=== PATIENT | male | born 1970 | race Caucasian/White ===

== ENCOUNTER → 2017-09-10 08:17 | Outpatient (CLI) | payer BC, SELFPAY ==
--- NOTE | 2017-09-10 08:21 | PCM.CR.HP2 ---
CR - History & Physical - General Arrival date:: 09/10/17 Arrival time:: 08:21 Date of Referral:: 08/20/17 Date of CR Evaluation:: 09/10/17 Referring Physician: Dr. Juan A Ceballos/ Dr. Seferino Gastelum local ms sql developer Primary Diagnosis: CABG x 2 vessel bypass 07/16/2017 @ [facility] - History of Present Cardiac Event Onset Date: Enter Onset Date of cardiac illnesses in Comment field below Acute Myocardial Infarction within 12 months:: Yes - Mar 2017 Coronary Artery Bypass Graft:: Yes - 07/16/2017 Type of Symptoms:: tightness in the chest, jaw pain, impeeding alin feeling again. Previous SC in 2003 classic text book symptoms Interventions with present event:: sent ot [facility] to Dr. Ceballos for consult and CABG. Were there any complications?: none - Medications Home Medications: Ambulatory Orders Medication Instructions Recorded Aspirin E.C. [Ecotrin] 81 mg PO DAILY@0800 04/13/13 Citalopram [Celexa] 20 mg PO DAILY 04/01/17 atorvastatin 80 mg tablet 80 mg PO QHS #90 tab 05/06/17 Acetaminophen [Tylenol] 325 mg PO Q6H PRN PRN 09/10/17 Clopidogrel Bisulfate [Plavix] 75 mg PO DAILY 09/10/17 Metoprolol Tartrate [Lopressor 25 mg PO BID 09/10/17 (beta radha)] - Allergies Allergies/Adverse Reactions: Allergies Penicillins [PCN] Allergy (Verified 04/01/17 20:27) Unknown - Sleep Disorder Evaluation Hx of Sleep Apnea: Yes Do you snore loudly (louder than talking or can be heard through closed doors)?: Yes - has JUAN M and wears home CPAP History of Hypertension (for STOP score): Yes Advanced Directives - Advanced Directives Power of House Coordinator: No Living Will: No Advance Directives Information Provided: No Advance Directives on File: No DNR Order?:: No - MOLST See MOLST form: No Past Medical History - Past Medical Illness Medical History: Past Medical History (Last Updated 04/18/17 @ 08:55 by Mikal Lester, CAD OPERATOR-C) Atherosclerosis of [place] coronary artery of [place] heart without angina pectoris (Chronic) I25.10 remote stenting to RCA at [facility] in [place], [place]; PTCA/FLEX to distal LCX 03/2017; Hypertension (Chronic) I10 History of myocardial infarction (Chronic) I25.2 Tobacco user (Chronic) Z72.0 Cardiac arrest I46.9 - Past Surgical History Surgical History: Past Surgical History (Last Updated 04/18/17 @ 08:54 by Mikal Lester CAD OPERATOR-C) History of left heart catheterization Z98.890 Surgical History: appendectomy, tonsillectomy, - - Cardiac stent placed - Family History Summary Family History: Family History (Last Updated 04/18/17 @ 10:07 by Susie Kasper) Mother Diabetes Hypertension HLD (hyperlipidemia) Social History - Smoking History Smoking Status: Former smoker Years Smokin Packs Smoked per Day: 2 Hx Smoking Cessation Date: 2013 Hx Tobacco Use: Yes Hx Smoking Exposure: No - Alcohol Use Alcohol Usage: Yes - ocassionally - Substance Abuse Hx Substance Use: No - Occupation Occupation (List type of work in comments):: Employed Hours worked per day:: 8 Returned to work on:: 08/22/17 - Hobbies, Recreation, Social Activities Hobbies: Other - gaolf, cortes, fish and sports Recreational Activities: I am able to engage in all my recreational activities Social Environment - Status Marital Status: - Current Living Arrangements Living Environment:: Family - Children How many children do you have?: 3 - 14, 10, 11 Do any of your children live nearby?: Yes - Safety Do you feel safe in your surroundings?: Yes - Assistance Do you need any assistance at home?: none Review of Systems - Review of Systems Hints: Right click = Denies (Slash). Left click = Reports ([place]) Review of Present Symptoms: Reports: Wound Healing, Appetite - Normal, Appetite - Special Diet - healthy diet, cardiac low sodium, no fats, etc. Mediterranian Diet now.. Denies: Shortness of Breath at Rest, Shortness of Breath with Exertion, Operative Discomfort, Dizziness/Lightheadedness, Fatigue - Pain Pain Location: none Pain Level: 0/10 Risk Factor Assessment - Chief Complaint Chief Complaint: Patient presentst o cardiac rehab under the direction of Dr. Juan A Ceballos at [facility] follwoing recent CABG. Patient will be following up [facility] care now with his local ms sql developer Dr. Seferino Gastelum. - Vital Signs Temperature: 98.7 F Respiratory Rate: 14 Pulse Ox: 96 Blood Pressure: 118/66 - left arm Nailbeds:: pink - Pulse Pulse Rate: 64 Pulse Rhythm: Regular - Hypertension Blood Pressure Sitting - Left Arm: 118/66 - Stress Stress: Recent - Diabetes Nutrition Referral for Diabetes: No - Obesity Height: 5 ft 10 in Weight:: 199 lb 12.8 oz Weight in Pounds: 199.8 lbs Weight Source: Standing Scale Body Mass Index (BMI): 28.6 Nutritional Referral for Obesity: No - following Mediteranian diet, cardiac diet - Physical Inactivity Physical Inactivity: Reg Exercise 30 min/day - Risk Stratification Risk Guidelines: Lowest Risk: Risk Factor for Smoking, Risk Factor for Dyslipidemia, Risk Factor for Diabetes, Risk Factor for Hypertension, Risk Factor for Sedentary Lifestyle, Risk Factor for Depression, Moderate Risk: Risk Factor for Obesity - For Smoking Smoking Risk Guidelines: Smoking Low Risk: None or quit greater than 6 months ago. Smoking Moderate Risk: Smoker or quit 6 months or less ago. Smoking High Risk: Smoker - For Dyslipidemia Dyslipidemia Risk Guidelines: Low Risk: Moderate Risk: High Risk: 15-25% fat 25.1-29% fat >/= 30% fat. <7% sat fat 7-9% sat fat >9% sat fat. <150 mg chol 150-299 mg chol >/= 300 mg chol. LDL <100 LDL 100-129 LDL >/= 130. Chol/HDL ratio <5.0 Chol/HDL ratio 5.0-6.0 Chol/HDL ratio >6.0. Triglycerides <100 Triglycerides 100-149 Triglycerides >/= 150 - For Diabetes Mellitus Diabetes Risk Guidelines: Diabetes Low Risk: HgA1c <6.5% and/or FBG <120. Diabetes Moderate Risk: HgA1c 6.6-7.9% and/or FBG 120-180. Diabetes High Risk: HgA1c >/= 8% and/or FBG >180 - For Obesity/Overweight Obesity/Overweight Risk Guidelines: Obesity Low Risk: BMI <25.0. Obesity Moderate Risk: BMI 25-29.9. Obesity High Risk: BMI >/= 30.0 - For Hypertension Hypertension Risk Guidelines: Hypertension Low Risk: Systolic <120 and Diastolic <80. Hypertension Moderate Risk: Systolic 120-139 and Diastolic 80-89. Hypertension High Risk: Systolic >/= 140 and Diastolic >/= 90 - For Sedentary Lifestyle Sedentary Lifestyle Risk Guidelines: Sedentary Lifestyle Low Risk: >/= 1,500 kcal/week. Sedentary Lifestyle Moderate Risk: 700-1,499 kcal/week. Sedentary Lifestyle High Risk: < 700 kcal/week - For Depression Depression Risk Guidelines: Depression Low Risk: Not clinically depressed. Depression Moderate Risk: Mildly depressed. Depression High Risk: Clinically depressed - Family History Family History: Family History (Last Updated 04/18/17 @ 10:07 by Susie Kasper) Mother Diabetes Hypertension HLD (hyperlipidemia) Motivation - Motivation to Participate On a scale of 1 to 10, how prepared are you to commit to attending program?: 15 What do you see as barriers to successfully being able to complete the program?: none What do you see as the benefits of succesfully completing the program? In other words, what do you hope to get out of participating in the program?: getting back on track with previous activity exercise. Are there issues you are dealing with that will interfere with completing the program?: none Do you have a spouse or signficant other, family or friends who will help support you to complete the program?: excellent family support system
--- NOTE | 2017-09-10 08:32 | CR.HP_ITS ---
CR - History & Physical - General Arrival date:: 09/10/17 Arrival time:: 08:21 Date of Referral:: 08/20/17 Date of CR Evaluation:: 09/10/17 Referring Physician: Dr. Juan A Ceballos/ Dr. Seferino Gastelum local travel insurance agent Primary Diagnosis: CABG x 2 vessel bypass 07/16/2017 @ [facility] - History of Present Cardiac Event Onset Date: Enter Onset Date of cardiac illnesses in Comment field below Acute Myocardial Infarction within 12 months:: Yes - Mar 2017 Coronary Artery Bypass Graft:: Yes - 07/16/2017 Type of Symptoms:: tightness in the chest, jaw pain, impeeding alin feeling again. Previous [place] in 2003 classic text book symptoms Interventions with present event:: sent ot [facility] to Dr. Ceballos for consult and CABG. Were there any complications?: none - Medications Home Medications: Ambulatory Orders Medication Instructions Recorded Aspirin E.C. [Ecotrin] 81 mg PO DAILY@0800 04/13/13 Citalopram [Celexa] 20 mg PO DAILY 04/01/17 atorvastatin 80 mg tablet 80 mg PO QHS #90 tab 05/06/17 Acetaminophen [Tylenol] 325 mg PO Q6H PRN PRN 09/10/17 Clopidogrel Bisulfate [Plavix] 75 mg PO DAILY 09/10/17 Metoprolol Tartrate [Lopressor 25 mg PO BID 09/10/17 (beta radha)] - Allergies Allergies/Adverse Reactions: Allergies Penicillins [PCN] Allergy (Verified 04/01/17 20:27) Unknown - Sleep Disorder Evaluation Hx of Sleep Apnea: Yes Do you snore loudly (louder than talking or can be heard through closed doors)? : Yes - has JUAN M and wears home CPAP History of Hypertension (for STOP score): Yes Advanced Directives - Advanced Directives Power of Mold Maker Apprentice: No Living Will: No Advance Directives Information Provided: No Advance Directives on File: No DNR Order?:: No - MOLST See MOLST form: No Past Medical History - Past Medical Illness Medical History: Past Medical History (Last Updated 04/18/17 @ 08:55 by Mikal Lester, RESIDENTIAL CARE OFFICER-C) Atherosclerosis of [place] coronary artery of [place] heart without angina pectoris (Chronic) I25.10 remote stenting to RCA at [facility] in [place], [place]; PTCA/FLEX to distal LCX 03/2017; Hypertension (Chronic) I10 History of myocardial infarction (Chronic) I25.2 Tobacco user (Chronic) Z72.0 Cardiac arrest I46.9 - Past Surgical History Surgical History: Past Surgical History (Last Updated 04/18/17 @ 08:54 by Mikal Lester RESIDENTIAL CARE OFFICER-C) History of left heart catheterization Z98.890 Surgical History: appendectomy, tonsillectomy, - - Cardiac stent placed - Family History Summary Family History: Family History (Last Updated 04/18/17 @ 10:07 by Susie Kasper) Mother Diabetes Hypertension HLD (hyperlipidemia) Social History - Smoking History Smoking Status: Former smoker Years Smokin Packs Smoked per Day: 2 Hx Smoking Cessation Date: 2013 Hx Tobacco Use: Yes Hx Smoking Exposure: No - Alcohol Use Alcohol Usage: Yes - ocassionally - Substance Abuse Hx Substance Use: No - Occupation Occupation (List type of work in comments):: Employed Hours worked per day:: 8 Returned to work on:: 08/22/17 - Hobbies, Recreation, Social Activities Hobbies: Other - gaolf, cortes, fish and sports Recreational Activities: I am able to engage in all my recreational activities Social Environment - Status Marital Status: - Current Living Arrangements Living Environment:: Family - Children How many children do you have?: 3 - 14, 10, 11 Do any of your children live nearby?: Yes - Safety Do you feel safe in your surroundings?: Yes - Assistance Do you need any assistance at home?: none Review of Systems - Review of Systems Hints: Right click = Denies (Slash). Left click = Reports ([place]) Review of Present Symptoms: Reports: Wound Healing, Appetite - Normal, Appetite - Special Diet - healthy diet, cardiac low sodium, no fats, etc. Mediterranian Diet now.. Denies: Shortness of Breath at Rest, Shortness of Breath with Exertion, Operative Discomfort, Dizziness/Lightheadedness, Fatigue - Pain Pain Location: none Pain Level: 0/10 Risk Factor Assessment - Chief Complaint Chief Complaint: Patient presentst o cardiac rehab under the direction of Dr. Juan A Ceballos at [facility] follwoing recent CABG. Patient will be following up [facility] care now with his local travel insurance agent Dr. Seferino Gastelum. - Vital Signs Temperature: 98.7 F Respiratory Rate: 14 Pulse Ox: 96 Blood Pressure: 118/66 - left arm Nailbeds:: pink - Pulse Pulse Rate: 64 Pulse Rhythm: Regular - Hypertension Blood Pressure Sitting - Left Arm: 118/66 - Stress Stress: Recent - Diabetes Nutrition Referral for Diabetes: No - Obesity Height: 5 ft 10 in Weight:: 199 lb 12.8 oz Weight in Pounds: 199.8 lbs Weight Source: Standing Scale Body Mass Index (BMI): 28.6 Nutritional Referral for Obesity: No - following [place]iter[place] diet, cardiac diet - Physical Inactivity Physical Inactivity: Reg Exercise 30 min/day - Risk Stratification Risk Guidelines: Lowest Risk: Risk Factor for Smoking, Risk Factor for Dyslipidemia, Risk Factor for Diabetes, Risk Factor for Hypertension, Risk Factor for Sedentary Lifestyle, Risk Factor for Depression, Moderate Risk: Risk Factor for Obesity - For Smoking Smoking Risk Guidelines: Smoking Low Risk: None or quit greater than 6 months ago. Smoking Moderate Risk: Smoker or quit 6 months or less ago. Smoking High Risk: Smoker - For Dyslipidemia Dyslipidemia Risk Guidelines: Low Risk: Moderate Risk: High Risk: 15-25% fat 25.1-29% fat >/= 30% fat. <7% sat fat 7-9% sat fat >9% sat fat. <150 mg chol 150-299 mg chol >/= 300 mg chol. LDL <100 LDL 100-129 LDL >/= 130. Chol/HDL ratio <5.0 Chol/HDL ratio 5.0-6.0 Chol/HDL ratio >6.0. Triglycerides <100 Triglycerides 100-149 Triglycerides >/= 150 - For Diabetes Mellitus Diabetes Risk Guidelines: Diabetes Low Risk: HgA1c <6.5% and/or FBG <120. Diabetes Moderate Risk: HgA1c 6.6-7.9% and/or FBG 120-180. Diabetes High Risk: HgA1c >/= 8% and/or FBG >180 - For Obesity/Overweight Obesity/Overweight Risk Guidelines: Obesity Low Risk: BMI <25.0. Obesity Moderate Risk: BMI 25-29.9. Obesity High Risk: BMI >/= 30.0 - For Hypertension Hypertension Risk Guidelines: Hypertension Low Risk: Systolic <120 and Diastolic <80. Hypertension Moderate Risk: Systolic 120-139 and Diastolic 80-89. Hypertension High Risk: Systolic >/= 140 and Diastolic >/= 90 - For Sedentary Lifestyle Sedentary Lifestyle Risk Guidelines: Sedentary Lifestyle Low Risk: >/= 1 ,500 kcal/week. Sedentary Lifestyle Moderate Risk: 700-1,499 kcal/week. Sedentary Lifestyle High Risk: < 700 kcal/week - For Depression Depression Risk Guidelines: Depression Low Risk: Not clinically depressed. Depression Moderate Risk: Mildly depressed. Depression High Risk: Clinically depressed - Family History Family History: Family History (Last Updated 04/18/17 @ 10:07 by Susie Kasper) Mother Diabetes Hypertension HLD (hyperlipidemia) Motivation - Motivation to Participate On a scale of 1 to 10, how prepared are you to commit to attending program?: 15 What do you see as barriers to successfully being able to complete the program? : none What do you see as the benefits of succesfully completing the program? In other words, what do you hope to get out of participating in the program?: getting back on track with previous activity exercise. Are there issues you are dealing with that will interfere with completing the program?: none Do you have a spouse or signficant other, family or friends who will help support you to complete the program?: excellent family support system
--- NOTE | 2017-09-10 08:36 | CR.ITP_ITS ---
General Information - General Information Admitting Diagnosis: Coronary artery bypass graft - Education/Goals Barriers to Learning: None Individual Counseling: Initial Assessment: Abnormal Cholesterol Levels, High Blood Pressure, Overweight/Obesity Cardiac Rehabilitation Goals: 1. Maintain the individual as the primary focus of care. 2. To improve the patient's quality of life. 3. Identification of cardiac risk factors and provide cardiac risk factor management. 4. Enhance the psychosocial status of the patient. 5. Reconditioning enough to allow the patient to resume customary activities. 6. Control symptoms of cardiac disease Scale for measuring improvement of personal goals: Enter appropriate number in Comments. 2 = Unchanged. 3 = Slightly Better. 4 = Moderate Improvement. 5 = Met my Goal Personal Goals: Initial Assessment: Improve management of stress and emotions, Improve energy level, Participate in home exercise program, Improve muscle strength and endurance, Improve diet and eating habits (eat healthier), Other goal: - CPAP Exercise - Initial Assessment - Visit Date of Eval: 09/10/17 Session #:: 0 - established ITP; start on 09/11/2017 @ 8:00am. - Stages of Change Stages of Change:: Action - Exercise Prescription Mode:: Treadmill, Rower - CABG 07/16/2017; 8 weeks post operative can do the rower., Airdyne, NuStep Angina with exercise?: No Target Heart Rate:: 132-140 - Hypertension Do any of the following apply?: Yes, Medication Resting Blood Pressure:: 122/68 - Intervention Home Exercise/Activity Goal:: Moderate Exercise 30 min/day x 5 days/wk - Education Goals:: Warm-up, RPE CHINO Scale, S/S, Safe Exercise, Self-Monitoring - Exercise Program Goals Exercise Program Goals: Aerobic Activity >30 min Nutrition - Initial Assessment - Program Goals Nutrition Program Goals: LDL <70. Total Cholesterol <200. HDL >45. Triglycerides <150. HgbA1C <7%. BMI <25 - Visit Date of Assessment:: 09/10/17 - Stages of Change Stages of Change:: Action - Diabetes Diabetes:: No - Weight Management Height: 5 ft 10 in Weight:: 199 lb 12.8 oz Body Fat %:: 28.91 - down from original 243#!! - Intervention Referral to dietitian:: No Referral to Diabetic Clinic:: No Will attend diet classes:: Yes - Education Gave educational materials for:: Healthy eating Tobacco - Initial Assessment - Program Goals Tobacco Program Goals: Complete smoking cessation. Attend education classes. Improve Knowledge Test score - Stage of Change Stages of Change:: Action - Learning Barriers Learning Barriers: Ready to Learn - Family Support Do you have family support?: Yes - excellent family support - Tobacco Use Tobacco Use: Non-smoker How long ago did you quit using tobacco products?: Greater than or equal to 6 months ago How many cigarettes do you smoke per day?: 0 - previous 15-20 per day Do you use smokeless tobacco?: No - Intervention Smoking Cessation Referral:: No Individual Education/Counseling:: No Education Schedule Given:: Yes - Education Gave educational material for:: Coronary artery disease, Risk factors, Sexuality , Medical compliance, Cardiac A&P, Angina signs & symptoms Psychosocial - Initial Assess - Target Goals Target Goals: Assess presence or absence of depression. Using a valid screening tool, maximizes coping skills. Positive support system - Stages of Change Stages of Change:: Action - Psychosocial Test Tool Used:: HANDS Depression Questionnaire - Intervention PS - Interventions: Yes Attend Stress Management Classes, Yes Uses Stress Management Skills, No Referral to Mental Health, No Referral to [facility] Case Management, No Referral to Physician - Education Gave educational materials for:: Coping techniques, Signs & symptoms of depression, Stress management, Relaxation techniques - Patient/Program Goal Preventative Medication(s):: Aspirin, Clopidogrel, Statin/lipid - Assistive Devices Assistive Devices:: None Fall Risk Assessed:: Yes Patient Health Questionnaire Initial Assessment 1. Little interest or pleasure in doing things: Not at all 2. Feeling down, depressed, or hopeless: Several days 3. Trouble falling or staying asleep, or sleeping too much: Not at all 4. Feeling tired or having little energy: Not at all 5. Poor appetite or overeating: Not at all 6. Feeling bad about yourself -- or that you are a failure or have let yourself or your family down: Not at all - more of feeling helpless; since still limited on activity and weight restrictions etc. 7. Trouble concentrating on things, such as reading the newspaper or watching television: Not at all 8. Moving or speaking so slowly that other people could have noticed. Or the opposite - being so fidgety or restless that you have been moving around a lot more than usual: Not at all 9. Thoughts that you would be better off , or of hurting yourself in some way: Not at all How difficult have these problems made it for you to do your work, take care of things at home, or get along with other people?: Not difficult at all Total Score: 1 NATALI-Q SV Test - Statements CAD is a disease of the arteries in the heart: False Examples of risk factors for heart disease: True Angina is chest pain or discomfort: True The benefits of resistance training include: True Eating more meat and dairy products: False Anti-platelet medications such as aspirin are important: True The only effective way to manage stress: False An exercise warm-up slowly increases heart rate: True Prepared, processed foods usually have high sodium: True Depression is common after a heart attack: True The statin medications lower cholesterol: True To control blood pressure, lower the amount of sodium: True If someone gets chest discomfort during walking: False Transfats are partially hydrogenated vegetable oils: True Sleep apnea that is not treated increases the risk: False To control cholesterol, one should become a vegetarian: False Someone knows if he/she is exercising at the right level: True Diabetes cannot be prevented with exercise & health eating: False Stress is a large risk for heart attack: True A diet that can help lower blood pressure is rich in: True - Total Score Total Correct Responses: 20 Self-Efficacy Initial Assessment We would like to know how confident you are in doing certain activities. Please select your confidence level for:: Select your confidence level for the following using the scale 1-10 where 1 is not at all confident and 10 is totally confident. Your score is the average of all 6 responses. Fatigue: How confident are you that you can keep the fatigue caused by your disease from interfering with the things you want to do? Select Number: 10 Physical Discomfort or Pain: How confident are you that you can keep the physical discomfort or pain of your disease from interfering with the things you want to do? Select Number: 10 Emotional Distress: How confident are you that you can keep the emotional distress caused by your disease from interfering with the things you want to do? Select Number: 10 Other Symptoms or Health Problems: How confident are you that you can keep other symptoms or health problems from interfering with the things you want to do? Select Number: 10 Different Tasks and Activities: How confident are you that you can do the different tasks and activities needed to manage your health condition so as to reduce your need to see a doctor? Select Number: 10 Medication: How confident are you that you can do things other than just taking medication to reduce how much your illness affects your everyday life? Select Number: 10 Total Score:: 10 Nutrition Survey - Nutrition Survey Instructions Scoring Instructions: Scoring is as follows: Yes = 1 points. No = 0 point. Patient score that is >/=12 is considered to be at potential nutritional risk and could benefit from a referral to a registered dietitian. - Nutrition Survey Initial Have you lost >10 lbs over the past 2 months without trying?: No Are you following a special diet at home for diabetes, low fat, or low salt?: Yes Are you interested in meeting with a dietitian for help understanding your diet? : Yes Do you eat less than 3 meals a day?: No Do you eat fatty meats (woods, sausage, ribs, etc), fried foods, desserts, large amounts of salad dressings, margarine, butter, or cheese most days?: No Do you have food allergies? [Enter types in comment field]: No Do you eat in restaurants more than 3 times a week?: No Do you season food with salt, seasoning salt, or garlic salt?: No Do you used canned, boxed, frozen meals, or soups, seasoning packets?: No Total Score:: 2
[2017-09-10 08:38] VITALS: BP 118/66; PULSE 64; RESP 14; TEMP 37.1; O2SAT 96; BMI 28.6
[2017-09-10 09:15] VITALS: BP 122/68
== END ==
PROVIDERS: Family Provider Family Medicine; PCP Family Medicine; Visit Provider Thoracic Surgery (Cardiothoracic Vascular Surgery)
DX: Z95.1 Presence of aortocoronary bypass graft (principal)

== ENCOUNTER 2017-09-11 07:45 | Outpatient (RCR) | payer BC, SELFPAY | END 2017-09-12 23:59 | LOC: CR 07:45 | PROVIDERS: Family Provider Family Medicine; PCP Family Medicine; Visit Provider Thoracic Surgery (Cardiothoracic Vascular Surgery) | DX: Z95.1 Presence of aortocoronary bypass graft (principal) | CPT/HCPCS: 93798 ==

== ENCOUNTER 2017-10-09 08:00 | Outpatient (RCR) | payer BC, SELFPAY ==
[2017-10-04 14:48] VITALS: BP 124/80
--- NOTE | 2017-10-04 14:49 | CR.ITP_ITS ---
Exercise - 30-day Assessment - Visit Date of Eval: 10/04/17 Session #:: 6 - Stages of Change Stages of Change:: Action - Exercise Prescription Mode:: Treadmill, Rower, Airdyne, NuStep Frequency (x/week): 3 Duration:: 30 METs - Progression: 0.5-1 MET as tolerated: 5 Target Heart Rate:: 132-140 - Hypertension Resting Blood Pressure:: 124/80 Peak Exercise Blood Pressure:: 124/80 Medication Changes:: No - Intervention Home Exercise/Activity Goal:: Moderate Exercise 30 min/day x 5 days/wk - Education Goals:: Warm-up, RPE CHINO Scale, S/S, Safe Exercise, Self-Monitoring - Exercise Program Goals Exercise Program Goals: Aerobic Activity >30 min Nutrition - 30-Day Assessment - Program Goals Nutrition Program Goals: LDL <70. Total Cholesterol <200. HDL >45. Triglycerides <150. HgbA1C <7%. BMI <25 - Visit Date of Eval: 10/04/17 - Stages of Change Stages of Change:: Action - Lipids Has the patient seen the dietitian?: No - Diabetes Diabetes:: No - Intervention Referral to dietitian:: No Will attend diet classes:: Yes - Education Attended class for:: Healthy eating Tobacco - Initial Assessment - Program Goals Tobacco Program Goals: Complete smoking cessation. Attend education classes. Improve Knowledge Test score - Learning Barriers Learning Barriers: Ready to Learn Tobacco - 30-Day Assessment - Program Goals Tobacco Program Goals: Complete smoking cessation. Attend education classes. Improve Knowledge Test score - Stage of Change Stages of Change:: Action - Learning Barriers Learning Barriers: Participates in education - Family Support Do you have family support?: Yes - Tobacco Use Tobacco Use: Non-smoker Do you use smokeless tobacco?: No - Education Attended class for:: Coronary artery disease, Risk factors, Sexuality, Medical compliance, Cardiac A&P, Angina signs & symptoms Psychosocial - Initial Assess - Target Goals Target Goals: Assess presence or absence of depression. Using a valid screening tool, maximizes coping skills. Positive support system - Psychosocial Test Tool Used:: HANDS Depression Questionnaire - Assistive Devices Fall Risk Assessed:: Yes Psychosocial - 30-Day Assess - Target Goals Target Goals: Assess presence or absence of depression. Using a valid screening tool, maximizes coping skills. Positive support system - Stages of Change Stages of Change:: Action - Psychosocial Test Tool Used:: HANDS Depression Questionnaire - Intervention PS - Interventions: Yes Attend Stress Management Classes, Yes Uses Stress Management Skills, No Referral to Mental Health, No Referral to [facility] Case Management, No Referral to Physician - Education Attended classes for:: Coping techniques, Signs & symptoms of depression, Stress management, Relaxation techniques - Patient/Program Goal Preventative Medication(s):: Aspirin, NAE inhibitor, Clopidogrel, Beta radha, Statin/lipid - Assistive Devices Assistive Devices:: None Fall Risk Assessed:: Yes Patient Health Questionnaire 30-Day Re-eval Assessment 1. Little interest or pleasure in doing things: Not at all 2. Feeling down, depressed, or hopeless: Not at all 3. Trouble falling or staying asleep, or sleeping too much: Not at all 4. Feeling tired or having little energy: Not at all 5. Poor appetite or overeating: Not at all 6. Feeling bad about yourself -- or that you are a failure or have let yourself or your family down: Not at all 7. Trouble concentrating on things, such as reading the newspaper or watching television: Not at all 8. Moving or speaking so slowly that other people could have noticed. Or the opposite - being so fidgety or restless that you have been moving around a lot more than usual: Not at all 9. Thoughts that you would be better off , or of hurting yourself in some way: Not at all Total Score: 0 Self-Efficacy 30-Day Re-eval Assessment We would like to know how confident you are in doing certain activities. Please select your confidence level for:: Select your confidence level for the following using the scale 1-10 where 1 is not at all confident and 10 is totally confident. Your score is the average of all 6 responses. Fatigue: How confident are you that you can keep the fatigue caused by your disease from interfering with the things you want to do? Select Number: 10 Physical Discomfort or Pain: How confident are you that you can keep the physical discomfort or pain of your disease from interfering with the things you want to do? Select Number: 10 Emotional Distress: How confident are you that you can keep the emotional distress caused by your disease from interfering with the things you want to do? Select Number: 10 Other Symptoms or Health Problems: How confident are you that you can keep other symptoms or health problems from interfering with the things you want to do? Select Number: 10 Different Tasks and Activities: How confident are you that you can do the different tasks and activities needed to manage your health condition so as to reduce your need to see a doctor? Select Number: 10 Medication: How confident are you that you can do things other than just taking medication to reduce how much your illness affects your everyday life? Select Number: 10 Total Score:: 10
== END 2017-10-12 23:59 ==
LOC: CR 08:00
PROVIDERS: Family Provider Family Medicine; PCP Family Medicine; Visit Provider Thoracic Surgery (Cardiothoracic Vascular Surgery)
DX: Z95.1 Presence of aortocoronary bypass graft (principal)
CPT/HCPCS: 93798

== ENCOUNTER 2017-11-11 08:00 | Outpatient (RCR) | payer BC, SELFPAY ==
[2017-10-13 01:05] VITALS: BP 124/80
[2017-11-06 11:33] VITALS: BP 154/70
--- NOTE | 2017-11-06 11:34 | CR.ITP_ITS ---
Exercise - 60-Day Assessment - Visit Date of Eval: 11/06/17 Session #:: 15 - Stages of Change Stages of Change:: Action - Exercise Prescription Mode:: Treadmill, Rower, Airdyne Frequency (x/week): 3 Duration:: 30 METs: 8 Target Heart Rate:: 138-146 - Hypertension Resting Blood Pressure:: 154/70 Peak Exercise Blood Pressure:: 154/70 Medication Changes:: No - Intervention Home Exercise/Activity Goal:: Moderate Exercise 30 min/day x 5 days/wk - Education Goals:: Warm-up, RPE CHINO Scale, S/S, Safe Exercise, Self-Monitoring - Exercise Program Goals Exercise Program Goals: Aerobic Activity >30 min Nutrition - 60-Day Assessment - Program Goals Nutrition Program Goals: LDL <70. Total Cholesterol <200. HDL >45. Triglycerides <150. HgbA1C <7%. BMI <25 - Visit Date of Eval: 11/06/17 - Stages of Change Stages of Change:: Action - Lipids Has the patient seen the dietitian?: No - Diabetes Diabetes:: No - Weight Management Weight:: 206 lb 8 oz - gained 2.5# - Intervention Referral to dietitian:: No Referral to Diabetic Clinic:: No Will attend diet classes:: Yes - Education Attended class for:: Healthy eating Tobacco - Initial Assessment - Program Goals Tobacco Program Goals: Complete smoking cessation. Attend education classes. Improve Knowledge Test score - Learning Barriers Learning Barriers: Ready to Learn Tobacco - 60-Day Assessment - Program Goals Tobacco Program Goals: Complete smoking cessation. Attend education classes. Improve Knowledge Test score - Stage of Change Stages of Change:: Action - Learning Barriers Learning Barriers: Participates in education - Family Support Do you have family support?: Yes - Tobacco Use Tobacco Use: Non-smoker Do you use smokeless tobacco?: No - Intervention Smoking Cessation Referral:: No Individual Education/Counseling:: No Education Schedule Given:: Yes - Education Attended class for:: Coronary artery disease, Risk factors, Sexuality, Medical compliance, Cardiac A&P, Angina signs & symptoms Psychosocial - 60-Day Assess - Target Goals Target Goals: Assess presence or absence of depression. Using a valid screening tool, maximizes coping skills. Positive support system - Stages of Change Stages of Change:: Action - Psychosocial Test Tool Used:: HANDS Depression Questionnaire - Intervention PS - Interventions: Yes Attend Stress Management Classes, Yes Uses Stress Management Skills, No Referral to Mental Health, No Referral to [facility] Case Management, No Referral to Physician - Education Attended classes for:: Coping techniques, Signs & symptoms of depression, Stress management, Relaxation techniques - Patient/Program Goal Preventative Medication(s):: Aspirin, Clopidogrel, Beta radha, Statin/lipid - Assistive Devices Assistive Devices:: None Fall Risk Assessed:: Yes Patient Health Questionnaire 60-Day Re-eval Assessment 1. Little interest or pleasure in doing things: Not at all 2. Feeling down, depressed, or hopeless: Not at all 3. Trouble falling or staying asleep, or sleeping too much: Not at all 4. Feeling tired or having little energy: Not at all 5. Poor appetite or overeating: Not at all 6. Feeling bad about yourself -- or that you are a failure or have let yourself or your family down: Not at all 7. Trouble concentrating on things, such as reading the newspaper or watching television: Not at all 8. Moving or speaking so slowly that other people could have noticed. Or the opposite - being so fidgety or restless that you have been moving around a lot more than usual: Not at all 9. Thoughts that you would be better off , or of hurting yourself in some way: Not at all How difficult have these problems made it for you to do your work, take care of things at home, or get along with other people?: Not difficult at all Total Score: 0 Self-Efficacy 60-Day Re-eval Assessment We would like to know how confident you are in doing certain activities. Please select your confidence level for:: Select your confidence level for the following using the scale 1-10 where 1 is not at all confident and 10 is totally confident. Your score is the average of all 6 responses. Fatigue: How confident are you that you can keep the fatigue caused by your disease from interfering with the things you want to do? Select Number: 10 Physical Discomfort or Pain: How confident are you that you can keep the physical discomfort or pain of your disease from interfering with the things you want to do? Select Number: 10 Emotional Distress: How confident are you that you can keep the emotional distress caused by your disease from interfering with the things you want to do? Select Number: 10 Other Symptoms or Health Problems: How confident are you that you can keep other symptoms or health problems from interfering with the things you want to do? Select Number: 10 Different Tasks and Activities: How confident are you that you can do the different tasks and activities needed to manage your health condition so as to reduce your need to see a doctor? Select Number: 10 Medication: How confident are you that you can do things other than just taking medication to reduce how much your illness affects your everyday life? Select Number: 10 Total Score:: 10
== END 2017-11-12 23:59 ==
LOC: CR 08:00
PROVIDERS: Family Provider Family Medicine; PCP Family Medicine; Visit Provider Thoracic Surgery (Cardiothoracic Vascular Surgery)
DX: Z95.1 Presence of aortocoronary bypass graft (principal)
CPT/HCPCS: 93798

== ENCOUNTER 2017-12-13 08:00 | Outpatient (RCR) | payer BC, SELFPAY ==
[2017-11-13 01:02] VITALS: BP 154/70
--- NOTE | 2017-12-06 14:41 | CR.ITP_ITS ---
General Information - General Information Admitting Diagnosis: CABG - Education/Goals Cardiac Rehabilitation Goals: 1. Maintain the individual as the primary focus of care. 2. To improve the patient's quality of life. 3. Identification of cardiac risk factors and provide cardiac risk factor management. 4. Enhance the psychosocial status of the patient. 5. Reconditioning enough to allow the patient to resume customary activities. 6. Control symptoms of cardiac disease Scale for measuring improvement of personal goals: Enter appropriate number in Comments. 2 = Unchanged. 3 = Slightly Better. 4 = Moderate Improvement. 5 = Met my Goal Exercise - 90-Day Assessment - Visit Date of Eval: 12/06/17 Session #:: 23 - Stages of Change Stages of Change:: Action - Exercise Prescription Mode:: Treadmill, Airdyne, NuStep Frequency (x/week): 3 Duration:: 30 METs: 9 Target Heart Rate:: 138/146 Max HR 138 - Hypertension Resting Blood Pressure:: 118/72 Peak Exercise Blood Pressure:: 128/80 - Intervention Home Exercise/Activity Goal:: Sitting Time <3 hrs/day - Education Goals:: Warm-up, RPE CHINO Scale, S/S, Safe Exercise, Self-Monitoring - Exercise Program Goals Exercise Program Goals: Aerobic Activity >30 min, B/P <130/80 Nutrition - 90-Day Assessment - Program Goals Nutrition Program Goals: LDL <70. Total Cholesterol <200. HDL >45. Triglycerides <150. HgbA1C <7%. BMI <25 - Visit Date of Eval: 12/06/17 - Stages of Change Stages of Change:: Action - Diabetes Diabetes:: No - Weight Management Weight:: 92.986 kg - Intervention Referral to dietitian:: No Referral to Diabetic Clinic:: No Will attend diet classes:: Yes - Education Attended class for:: Signs & symptoms of hypoglycemia, Signs & symptoms of hyperglycemia, Relate diabetes to coronary artery disease, Healthy eating Tobacco - Initial Assessment - Program Goals Tobacco Program Goals: Complete smoking cessation. Attend education classes. Improve Knowledge Test score - Learning Barriers Learning Barriers: Ready to Learn Tobacco - 90-Day Assessment - Program Goals Tobacco Program Goals: Complete smoking cessation. Attend education classes. Improve Knowledge Test score - Stage of Change Stages of Change:: Action - Learning Barriers Learning Barriers: Participates in education - Family Support Do you have family support?: Yes - Tobacco Use Tobacco Use: Non-smoker Do you use smokeless tobacco?: No - Intervention Smoking Cessation Referral:: No Individual Education/Counseling:: No Education Schedule Given:: Yes - Education Attended class for:: Tobacco triggers, Coronary artery disease, Risk factors, Sexuality, Medical compliance, Cardiac A&P, Angina signs & symptoms Psychosocial - Initial Assess - Target Goals Target Goals: Assess presence or absence of depression. Using a valid screening tool, maximizes coping skills. Positive support system - Psychosocial Test Tool Used:: HANDS Depression Questionnaire - Assistive Devices Fall Risk Assessed:: Yes Psychosocial - 90-Day Assess - Target Goals Target Goals: Assess presence or absence of depression. Using a valid screening tool, maximizes coping skills. Positive support system - Stages of Change Stages of Change:: Action - Psychosocial Test Tool Used:: HANDS Depression Questionnaire - Intervention PS - Interventions: Yes Attend Stress Management Classes, Yes Uses Stress Management Skills, No Referral to Mental Health, No Referral to [facility] Case Management, No Referral to Physician - Education Attended classes for:: Coping techniques, Signs & symptoms of depression, Stress management, Relaxation techniques - Assistive Devices Assistive Devices:: None Fall Risk Assessed:: Yes Patient Health Questionnaire 90-Day Re-eval Assessment 1. Little interest or pleasure in doing things: Not at all 2. Feeling down, depressed, or hopeless: Not at all 3. Trouble falling or staying asleep, or sleeping too much: Not at all 4. Feeling tired or having little energy: Not at all 5. Poor appetite or overeating: Not at all 6. Feeling bad about yourself -- or that you are a failure or have let yourself or your family down: Not at all 7. Trouble concentrating on things, such as reading the newspaper or watching television: Not at all 8. Moving or speaking so slowly that other people could have noticed. Or the opposite - being so fidgety or restless that you have been moving around a lot more than usual: Not at all 9. Thoughts that you would be better off , or of hurting yourself in some way: Not at all How difficult have these problems made it for you to do your work, take care of things at home, or get along with other people?: Not difficult at all Total Score: 0 Self-Efficacy 90-Day Re-eval Assessment We would like to know how confident you are in doing certain activities. Please select your confidence level for:: Select your confidence level for the following using the scale 1-10 where 1 is not at all confident and 10 is totally confident. Your score is the average of all 6 responses. Fatigue: How confident are you that you can keep the fatigue caused by your disease from interfering with the things you want to do? Select Number: 10 Physical Discomfort or Pain: How confident are you that you can keep the physical discomfort or pain of your disease from interfering with the things you want to do? Select Number: 10 Emotional Distress: How confident are you that you can keep the emotional distress caused by your disease from interfering with the things you want to do? Select Number: 10 Other Symptoms or Health Problems: How confident are you that you can keep other symptoms or health problems from interfering with the things you want to do? Select Number: 10 Different Tasks and Activities: How confident are you that you can do the different tasks and activities needed to manage your health condition so as to reduce your need to see a doctor? Select Number: 10 Medication: How confident are you that you can do things other than just taking medication to reduce how much your illness affects your everyday life? Select Number: 10 Total Score:: 10
[2017-12-06 14:42] VITALS: BP 118/72; BP 128/80
== END 2017-12-13 23:59 ==
LOC: CR 08:00
PROVIDERS: Family Provider Family Medicine; PCP Family Medicine; Visit Provider Thoracic Surgery (Cardiothoracic Vascular Surgery)
DX: Z95.1 Presence of aortocoronary bypass graft (principal)
CPT/HCPCS: 93798

== ENCOUNTER 2017-12-24 11:50 | Emergency (ER) | payer BC, SELFPAY ==
--- NOTE | 2017-12-24 | RAD_ITS ---
STUDY: X-RAY CHEST REASON FOR EXAM: Male, 47 years old. Chest pain. TECHNIQUE: Single AP portable view of the chest. COMPARISON: Comparison is made with prior study dated April 01, 2017. FINDINGS: EKG electrodes are seen. The lungs are clear and expanded. There is no demonstrated pleural abnormality. Sternal cerclage wires and vascular clips are present from a prior sternotomy and coronary artery bypass graft procedure (CABG). Normal mediastinum and tico. Normal visualized pulmonary arteries. Normal visualized aortic arch and descending thoracic aorta. Normal visualized thoracic spine. Normal visualized ribs, clavicles, and shoulders. There is no demonstrated abnormality of the visualized soft tissue structures of the upper abdomen. RAD/Chest 1 View (Portable) IMPRESSION: Status post CABG. No acute abnormality is seen. Electronically Signed: Pascual Jacobs MD at 12:55 EDT Tel [phone], Service support ,
[2017-12-24 11:51] VITALS: BP 181/88; PULSE 79; RESP 18; TEMP 35.8; O2SAT 100; BMI 29.5
--- NOTE | 2017-12-24 12:11 | EKG12_ITS ---
Test Reason : Blood Pressure : / mmHG Vent. Rate : 075 BPM Atrial Rate : 075 BPM P-R Int : 156 ms QRS Dur : 078 ms QT Int : 390 ms P-R-T Axes : 052 011 045 degrees QTc Int : 435 ms Normal sinus rhythm Possible Inferior infarct , age undetermined Abnormal ECG Confirmed by FRANSISCA PEÑALOZA, GRANT ([id number]), order editor VIVIENNE LAFLEUR ([id number]) on 12/27/2017 1:13:20 PM Referred By: MARYLOU Confirmed By:GRANT GONGORA MD
--- NOTE | 2017-12-24 12:18 | ED.VISSUMM ---
- ER Visit Summary Date of Service: 12/24/17 Chief Complaint: Elevated blood pressure History of Present Illness: The patient is a 47 M 3 of hypertension, CAD with 2 stents and a recent double bypass in July. Patient had 2 prior MIs. Today he stood up he felt flushed. His blood pressure was elevated and he noticed a heat sensation in his chest and in his extremities. States the chest discomfort is not like his prior heart attacks. He denies dyspnea. He is on Plavix and aspirin. He states he has been walking and doing cardiac rehab without any difficulty. He had no exertional chest pain or shortness of breath. He [place] the [place] any difficulty. He has had no recent exertional chest pain. Physical Examination: Appearing middle-aged male. Vital signs are stable afebrile. Pulse ox 9% on room air no signs of his initial blood pressure was 181/88. . H EENT exam is unremarkable. Neck is nontender. Lungs clear to auscultation bilaterally. Heart regular rate and rhythm no murmur. Chest wall nontender. Well-healed incision. Abdomen soft and nontender. Moving all 4 extremities. Calves are nontender without edema or cords. Neurologically is awake and alert without focal motor deficits. Test Results: EKG sinus rhythm rate 75 with no acute abnormality. Old inferior infarct. CBC normal. BMP normal. Troponin normal. Portable chest x-ray 1 view no acute abnormality read both by myself and radiologist. Emergency Department Course and Treatment: Patient will undergo a cardiac workup Clinically on repeat exam patient is doing well at 1442. He has had no recent exertional dyspnea. He did a lot of walking yesterday and felt fine. Pain is atypical today. Both the and I are comfortable with him being discharged home. 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 Disposition: Discharge Impression: Acute on chronic hypertension. Atypical chest pain. This note was generated with [employer] dictation software. It may contain incorrect words, spelling, and punctuation that were not noted in review of the chart prior to signing ED Disposition - Plan for ED Patient: Chief Complaint: Chest Pain Referrals: Moses Carvajal MD [Primary Care Provider] -
--- NOTE | 2017-12-24 12:21 | ED.DCSUM_ITS ---
- ER Visit Summary Date of Service: 12/24/17 Chief Complaint: Elevated blood pressure History of Present Illness: The patient is a 47 M 3 of hypertension, CAD with 2 stents and a recent double bypass in July. Patient had 2 prior MIs. Today he stood up he felt flushed. His blood pressure was elevated and he noticed a heat sensation in his chest and in his extremities. States the chest discomfort is not like his prior heart attacks. He denies dyspnea. He is on Plavix and aspirin. He states he has been walking and doing cardiac rehab without any difficulty. He had no exertional chest pain or shortness of breath. He states he [place] the [place] without any difficulty. He has had no recent exertional chest pain. Physical Examination: Appearing middle-aged male. Vital signs are stable afebrile. Pulse ox 9% on room air no signs of his initial blood pressure was 181/88. . H EENT exam is unremarkable. Neck is nontender. Lungs clear to auscultation bilaterally. Heart regular rate and rhythm no murmur. Chest wall nontender. Well-healed incision. Abdomen soft and nontender. Moving all 4 extremities. Calves are nontender without edema or cords. Neurologically is awake and alert without focal motor deficits. Test Results: EKG sinus rhythm rate 75 with no acute abnormality. Old inferior infarct. CBC normal. BMP normal. Troponin normal. Portable chest x-ray 1 view no acute abnormality read both by myself and radiologist. Emergency Department Course and Treatment: Patient will undergo a cardiac workup Clinically on repeat exam patient is doing well at 1442. He has had no recent exertional dyspnea. He did a lot of walking yesterday and felt fine. Pain is atypical today. Both the and I are comfortable with him being discharged home. 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 Disposition: Discharge Impression: Acute on chronic hypertension. Atypical chest pain. This note was generated with [employer] acquired by [employer] dictation software. It may contain incorrect words, spelling, and punctuation that were not noted in review of the chart prior to signing ED Disposition - Plan for ED Patient: Chief Complaint: Chest Pain Referrals: Moses Carvajal MD [Primary Care Provider] -
[2017-12-24] MEDS: Aspirin 81 MG TAB.CHEW 324 MG PO (12:30)
[2017-12-24 12:42] VITALS: O2SAT 97
[2017-12-24 12:47] LABS: Absolute Lymphocyte Count 1.84 X10^3/ul (0.83-4.51); Absolute Neutrophil Count 3.3 X10^3/uL (2.0-7.7); Basophil# 0.02 X10^3/uL; Basophil% 0.4 % (0-1); Eosinophil# 0.16 X10^3/uL; Eosinophils% 2.8 % (0-5); Hematocrit 43.5 % (40-54); Hemoglobin 14.3 g/dl (13.0-16.5); Lymphocyte # 1.84 X10^3/ul (4.0); Lymphocyte % 32.7 % (19-41); Mean Corp Hgb Conc 32.9 g/gl (32-36); Mean Corpuscular Hgb 28.8 pg (27.0-32.0); Mean Corpuscular Volume 87.7 fL (80-94); Mean Platelet Vol. 9.9 fl (6.2-12.0); Monocyte# 0.34 X10^3/uL; Neutrophil # 3.26 X10^3/uL (2.7-7.7); Neutrophil % 57.9 % (47-70); Platelet Count 276 K/mm3 (150-450); RBC Distribution Width CV 14.5 % (11.6-14.6); RBC Distribution Width SD 46.5 fl (35.1-43.9); Red Blood Count 4.96 M/mm3 (4.6-6.2); White Blood Count 5.6 K/mm3 (4.4-11.0)
[2017-12-24 12:50] LABS: POSITIVE COUNT NO; POSITIVE DIFFERENTIAL NO; POSITIVE MORPHOLOGY NO
[2017-12-24 13:06] LABS: Anion Gap 9 (5-15); BUN 18 mg/dL (7-18); BUN/Creat Ratio 17.8 RATIO (10-20); Calcium,Total 8.7 mg/dL (8.5-10.1); Chloride 105 mmol/L (98-107); Creatinine, Serum 1.01 mg/dL (0.70-1.30); EST Glomerular Filtration Rate 85 mL/min (>60); Est Glom Filt Rate - Afr Amer 103 mL/min (>60); Estimated Creatinine Clearance 98.37 ml/min; Glucose 114 mg/dL (74-106); Potassium 4.5 mmol/L (3.5-5.1); Sodium Level 143 mmol/L (136-145)
--- NOTE | 2017-12-24 14:44 | ED.DEP ---
ED Disposition - Plan for ED Patient: Disposition: Home or Assisted Living Chief Complaint: Chest Pain Instructions: ED Chest Pain Atypical Unkn Cause Referrals: Austin Canales MD [STAFF PHYSICIAN] - 1 Week Additional Instructions: All your labs were normal today. This does not sound like cardiac chest pain. Was negative call and follow-up with Dr. Canales and Nirav. Return to the ER if feeling worse.
[2017-12-24 14:54] VITALS: BP 155/98; PULSE 68; O2SAT 97
== END 2017-12-24 15:02 | disposition home or self-care (01) ==
PROVIDERS: Emergency Provider Emergency Medicine; Family Provider Family Medicine; PCP Family Medicine
DX: I10 Essential (primary) hypertension (principal); I25.10 Atherosclerotic heart disease of native coronary artery without angina pectoris; Z95.5 Presence of coronary angioplasty implant and graft; Z95.1 Presence of aortocoronary bypass graft; R07.89 Other chest pain; I25.2 Old myocardial infarction
CPT/HCPCS: 71045; 80048; 84484; 85025; 93005; 99285

== ENCOUNTER 2018-01-10 08:00 | Outpatient (RCR) | payer BC, SELFPAY ==
[2017-12-14 01:07] VITALS: BP 118/72; BP 128/80
--- NOTE | 2018-01-08 13:03 | PCM.CR.ITP ---
Exercise - Final/Discharge - Visit Date of Eval: 01/08/18 - Graduates on 01/10/2018 - Stages of Change Stages of Change:: Action - Exercise Prescription Mode:: Treadmill, Rower, Airdyne, NuStep Frequency (x/week): 3 Duration:: 35 METs: 9 Target Heart Rate:: 138-146 - Hypertension Do any of the following apply?: Yes, Medication Resting Blood Pressure:: 144/62 Peak Exercise Blood Pressure:: 140/70 - Intervention Home Exercise/Activity Goal:: Moderate Exercise 30 min/day x 5 days/wk - Education Goal Progress: Goal Met - Exercise Program Goals Exercise Program Goals: Aerobic Activity >30 min, B/P <130/80 Nutrition - Final Assessment - Program Goals Nutrition Program Goals: LDL <70. Total Cholesterol <200. HDL >45. Triglycerides <150. HgbA1C <7%. BMI <25 - Visit Date of Eval: 01/08/18 - Stages of Change Stages of Change:: Action - Lipids Have there been any medication changes?: some medications Discontinued - Diabetes Diabetes:: No - Weight Management Height: 5 ft 11 in Weight:: 209 lb Body Fat %:: 29.13 - Intervention Referral to dietitian:: No Will attend diet classes:: Yes - Education Education Goal Reached?: Yes Tobacco - Initial Assessment - Program Goals Tobacco Program Goals: Complete smoking cessation. Attend education classes. Improve Knowledge Test score - Learning Barriers Learning Barriers: Ready to Learn Tobacco - Final Assessment - Program Goals Tobacco Program Goals: Complete smoking cessation. Attend education classes. Improve Knowledge Test score - Stage of Change Stages of Change:: Action - Family Support Do you have family support?: Yes - Tobacco Use Tobacco Use: Non-smoker Do you use smokeless tobacco?: No - Intervention Education Schedule Given:: Yes - Education Education Goal Reached?: Yes Psychosocial - Initial Assess - Target Goals Target Goals: Assess presence or absence of depression. Using a valid screening tool, maximizes coping skills. Positive support system - Psychosocial Test Tool Used:: HANDS Depression Questionnaire - Assistive Devices Fall Risk Assessed:: Yes Psychosocial - Final Assessmen - Target Goals Target Goals: Assess presence or absence of depression. Using a valid screening tool, maximizes coping skills. Positive support system - Stages of Change Stages of Change:: Action - Psychosocial Test Tool Used:: HANDS Depression Questionnaire - Intervention PS - Interventions: Yes Attend Stress Management Classes, Yes Uses Stress Management Skills, No Referral to Mental Health, No Referral to [facility] Case Management, No Referral to Physician - Education Education Goal Reached?: Yes - Patient/Program Goal Preventative Medication(s):: Aspirin, Clopidogrel, Beta radha, Statin/lipid - Assistive Devices Assistive Devices:: None Fall Risk Assessed:: Yes Patient Health Questionnaire Discharge Assessment 1. Little interest or pleasure in doing things: Not at all 2. Feeling down, depressed, or hopeless: Not at all 3. Trouble falling or staying asleep, or sleeping too much: Not at all 4. Feeling tired or having little energy: Not at all 5. Poor appetite or overeating: Not at all 6. Feeling bad about yourself -- or that you are a failure or have let yourself or your family down: Not at all 7. Trouble concentrating on things, such as reading the newspaper or watching television: Not at all 8. Moving or speaking so slowly that other people could have noticed. Or the opposite - being so fidgety or restless that you have been moving around a lot more than usual: Not at all 9. Thoughts that you would be better off , or of hurting yourself in some way: Not at all Total Score: 0 NATALI-Q SV Test - Statements CAD is a disease of the arteries in the heart: False Examples of risk factors for heart disease: True Angina is chest pain or discomfort: True The benefits of resistance training include: True Eating more meat and dairy products: False Anti-platelet medications such as aspirin are important: True The only effective way to manage stress: True An exercise warm-up slowly increases heart rate: True Prepared, processed foods usually have high sodium: True Depression is common after a heart attack: True The statin medications lower cholesterol: True To control blood pressure, lower the amount of sodium: True If someone gets chest discomfort during walking: False Transfats are partially hydrogenated vegetable oils: True Sleep apnea that is not treated increases the risk: False To control cholesterol, one should become a vegetarian: False Someone knows if he/she is exercising at the right level: True Diabetes cannot be prevented with exercise & health eating: False Stress is a large risk for heart attack: True A diet that can help lower blood pressure is rich in: True - Total Score Total Correct Responses: 19 Self-Efficacy Discharge Assessment We would like to know how confident you are in doing certain activities. Please select your confidence level for:: Select your confidence level for the following using the scale 1-10 where 1 is not at all confident and 10 is totally confident. Your score is the average of all 6 responses. Fatigue: How confident are you that you can keep the fatigue caused by your disease from interfering with the things you want to do? Select Number: 10 Physical Discomfort or Pain: How confident are you that you can keep the physical discomfort or pain of your disease from interfering with the things you want to do? Select Number: 10 Emotional Distress: How confident are you that you can keep the emotional distress caused by your disease from interfering with the things you want to do? Select Number: 10 Other Symptoms or Health Problems: How confident are you that you can keep other symptoms or health problems from interfering with the things you want to do? Select Number: 10 Different Tasks and Activities: How confident are you that you can do the different tasks and activities needed to manage your health condition so as to reduce your need to see a doctor? Select Number: 10 Medication: How confident are you that you can do things other than just taking medication to reduce how much your illness affects your everyday life? Select Number: 10 Total Score:: 10 Nutrition Survey - Nutrition Survey Instructions Scoring Instructions: Scoring is as follows: Yes = 1 points. No = 0 point. Patient score that is >/=12 is considered to be at potential nutritional risk and could benefit from a referral to a registered dietitian. - Nutrition Survey Discharge Have you lost >10 lbs over the past 2 months without trying?: No Are you following a special diet at home for diabetes, low fat, or low salt?: Yes - 1800 calorie cardiac diet w/no added salt, fat. Are you interested in meeting with a dietitian for help understanding your diet?: No Do you eat less than 3 meals a day?: No Do you eat fatty meats (woods, sausage, ribs, etc), fried foods, desserts, large amounts of salad dressings, margarine, butter, or cheese most days?: No Do you have food allergies? [Enter types in comment field]: No Do you eat in restaurants more than 3 times a week?: No Do you season food with salt, seasoning salt, or garlic salt?: No Do you used canned, boxed, frozen meals, or soups, seasoning packets?: No Total Score:: 1
[2018-01-08 13:09] VITALS: BP 140/70; BP 144/62
== END 2018-01-12 23:59 ==
LOC: CR 08:00
PROVIDERS: Family Provider Family Medicine; PCP Family Medicine; Visit Provider Thoracic Surgery (Cardiothoracic Vascular Surgery)
DX: Z95.1 Presence of aortocoronary bypass graft (principal)
CPT/HCPCS: 93798

== ENCOUNTER → 2018-05-28 13:33 | Outpatient (CLI) | payer BC, SELFPAY ==
[2018-05-19 10:38] VITALS: BMI 30.7
--- NOTE | 2018-05-28 13:36 | ECHOD_ITS ---
Reason For Study: CAD Procedure This was a 2D Doppler, Color Flow transthoracic echocardiogram. Exam performed in department. Left Ventricle Normal size and thickness. The estimated ejection fraction is 65 %. Normal diastology for age. No regional wall motion abnormalities noted. Right Ventricle Mildly dilated right ventricle. Normal systolic function. Atria Normal left atrium. Normal right atrium. Normal atrial septum. Mitral Valve The mitral valve is structurally normal. No prolapse or stenosis seen. Trivial mitral valve insufficiency. Tricuspid Valve Normal tricuspid valve. Trivial tricuspid valve insufficiency. Right ventricular systolic pressure estimated to be 35 mmHg. Aortic Valve Trisinus/trileaflet aortic valve. Mild focal aortic valve thickening. Trivial aortic valve insufficiency. Pulmonic Valve Normal pulmonic valve. Trivial pulmonic valve insufficiency. Great Vessels Normal aortic root. Normal arch. Normal inferior vena cava. Inferior vena cava collapse with sniff. Pericardium/Pleural No pericardial effusion. MMode/2D Measurements & Calculations LVIDd: 5.1 cm IVSd: 1.1 cm Ao root diam: 2.8 cm LVIDs: 3.3 cm LVPWd: 1.1 cm RVDd: 4.2 cm FS: 34.8 % LAV(MOD-bp): 31.7 ml LA A4 area: 13.8 cm2 LA dimension(2D): 4.5 cm LAV(MOD-bp) Indexed: 15.0 ml/m2 LAV(MOD-sp2): 32.8 ml LAV(MOD-sp4): 29.0 ml RA A4 area: 11.9 cm2 Time Measurements MV dec time: 0.20 sec Doppler Measurements & Calculations MV E max jose armando: 78.4 cm/sec Lat Peak E' Jose Armando: 13.2 cm/sec Med Peak E' Jose Armando: 6.4 cm/sec MV A max jose armando: 65.1 cm/sec E/E' lat: 6.0 E/E' med: 12.3 MV E/A: 1.2 Ao V2 max: 133.8 cm/sec LV V1 max: 109.8 cm/sec PA V2 max: 121.2 cm/sec Ao max P.2 mmHg LV V1 max P.8 mmHg PI end-d jose armando: 71.4 cm/sec TR max jose armando: 273.1 cm/sec TR max P.8 mmHg Interpretation Summary The estimated ejection fraction is 65 %. Normal diastology for age. Mildly dilated right ventricle. Trivial mitral valve insufficiency. Trivial tricuspid valve insufficiency. Right ventricular systolic pressure estimated to be 35 mmHg. Trivial aortic valve insufficiency. Compared to echo report dated 04/02/2017, LV function has normalized from 45% to 65%. Ordering Physician: Seferino Gastelum Referring Physician: BISHOP PORTILLO Performed By: Candis, Christie, RDCS, RVT
== END ==
PROVIDERS: Family Provider Family Medicine; PCP Family Medicine; Referring Provider Internal Medicine Cardiovascular Disease; Visit Provider Internal Medicine Cardiovascular Disease
DX: I25.10 Atherosclerotic heart disease of native coronary artery without angina pectoris (principal); I25.2 Old myocardial infarction; I46.9 Cardiac arrest, cause unspecified; I10 Essential (primary) hypertension; Z95.1 Presence of aortocoronary bypass graft; Z95.5 Presence of coronary angioplasty implant and graft
CPT/HCPCS: 93306

== ENCOUNTER 2019-06-22 08:52 | Emergency (ER) | payer OTHER, SELFPAY ==
[2018-05-19 10:38] VITALS: BMI 30.7
[2019-06-22 08:54] VITALS: BP 163/93; PULSE 71; RESP 17; TEMP 36.8; O2SAT 97; BMI 31.6
--- NOTE | 2019-06-22 09:14 | RAD_ITS ---
STUDY: X-RAY CHEST REASON FOR EXAM: Male, 48 years old. MID CHEST DISCOMFORT X SEVERAL DAYS, PREVIOUS CARDIAC HX TECHNIQUE: Single AP portable view of the chest. COMPARISON: Comparison is made with prior study dated December 24, 2017. FINDINGS: EKG electrodes are seen. The lungs are clear and expanded. Stable elevation of the right hemidiaphragm. There is no demonstrated pleural abnormality. Sternal cerclage wires and vascular clips are present from a prior sternotomy and coronary artery bypass graft procedure (CABG). Normal mediastinum and tico. Normal visualized pulmonary arteries. Normal visualized aortic arch and descending thoracic aorta. Normal visualized thoracic spine. Normal visualized ribs, clavicles, and shoulders. There is no demonstrated abnormality of the visualized soft tissue structures of the upper abdomen. RAD/Chest 1 View (Portable) IMPRESSION: Stable examination. Status post CABG. Electronically Signed: Pascual Jacobs, at 10:04 EDT , Service support ,
--- NOTE | 2019-06-22 09:14 | EKG12_ITS ---
Test Reason : Blood Pressure : / mmHG Vent. Rate : 064 BPM Atrial Rate : 064 BPM P-R Int : 156 ms QRS Dur : 078 ms QT Int : 410 ms P-R-T Axes : 048 006 029 degrees QTc Int : 422 ms Normal sinus rhythm Possible Inferior infarct (cited on or before 13-APR-2013) Abnormal ECG Confirmed by BRANDON PEÑALOZA, YG ([id number]), video tape editor MARTI PEGUERO ([id number]) on 06/23/2019 1:39:34 PM Referred By: LIDA Confirmed By:YG TAYLOR MD
[2019-06-22 09:15] VITALS: O2SAT 97
--- NOTE | 2019-06-22 09:15 | ED.VISSUMM ---
- ER Visit Summary Date of Service: 06/22/19 Chief Complaint: [Chest pain] History of Present Illness: The patient is a 48 M [presents the emergency department complaint of chest discomfort is her about a week ago. Patient describes intermittent episodes throughout the day of this burning odd sensation in his left chest and sometimes into the right chest. Patient at times feels some numbness and tingling in the left arm and into his back. Patient states that the discomfort will last for several minutes. He does not think it is necessarily exertional. He denies any shortness of breath or nausea or vomiting. He denies any diaphoresis. Patient states that yesterday he just felt fatigued all day and was in bed most of the day and then his son convinced him to come outside and play basketball and so he played basketball for 45 minutes and really had no difficulties. Patient does have history of prior CT with prior CABG in 2018. Patient was seen with similar type discomfort less than a year ago at [facility] and was admitted overnight and had a stress test which was unremarkable. Patient not currently having any discomfort. She denies recent travel or surgery.] Physical Examination: [HEENT-PERRLA, EOMI. Cranial nerves II through XII grossly intact. TMs clear. Mucous membranes moist. No adenopathy. Cardiovascular-regular rate and rhythm without murmur or ectopy Lungs-clear to auscultation, chest wall stable without crepitus or subcu emphysema Abdomen-normoactive bowel sounds, soft, nontender, no rebound or rigidity, no peritoneal signs. Extremities-intact ?4, normal range of motion, normal pulses, atraumatic] Test Results: [EKG obtained on arrival showed a sinus rhythm with a ventricular rate of 64 bpm with old inferior wall infarct noted.] CBC with it was normal. Chemistries normal. Troponin was less than 0.015. Chest x-ray showed nothing acute. Emergency Department Course and Treatment: [On arrival patient received aspirin and was placed on a elementary tutor. Patient had an IV line established.] Treatment Plan: [Discussed with patient's soil fertility extension specialist Dr. Seferino Gastelum. His presentation is atypical for cardiac etiology for his discomfort and pain given his normal work-up in the emergency department was felt patient can keep his appointment to follow-up with our office tomorrow.] Disposition: [Discharged home in stable condition. Patient advised to return if persistent pain, increasing shortness of breath, or condition should worsen anyway.] Impression: [Chest pain-etiology uncertain] This note was generated with Stilnest dictation software. It may contain incorrect words, spelling, and punctuation that were not noted in review of the chart prior to signing ED Disposition - Plan for ED Patient: Referrals: Moses Carvajal MD [Primary Care Provider] -
[2019-06-22] MEDS: Aspirin 81 MG TAB.CHEW 324 MG PO (09:17)
[2019-06-22 09:24] LABS: Absolute Lymphocyte Count 1.54 X10^3/uL (0.83-4.51); Absolute Neutrophil Count 5.1 X10^3/uL (2.0-7.7); Basophil# 0.04 X10^3/uL; Basophil% 0.6 % (0-1); Eosinophil# 0.13 X10^3/uL; Eosinophils% 1.8 % (0-5); Hematocrit 45.9 % (40-54); Hemoglobin 15.5 g/dL (13.0-16.5); Lymphocyte # 1.54 X10^3/ul (4.0); Lymphocyte % 21.2 % (19-41); Mean Corp Hgb Conc 33.8 g/dL (32-36); Mean Corpuscular Hgb 29.6 pg (27.0-32.0); Mean Corpuscular Volume 87.6 fL (80-94); Mean Platelet Vol. 9.4 fl (6.2-12.0); Monocyte# 0.45 X10^3/uL; Monocyte% 6.2 % (0-10); NRBC Flagged by Analyzer 0 % (0-5); Neutrophil # 5.09 X10^3/uL (2.7-7.7); Neutrophil % 69.9 % (47-70); Platelet Count 315 K/mm3 (150-450); RBC Distribution Width CV 12.4 % (11.6-14.6); RBC Distribution Width SD 39.9 fl (35.1-43.9); Red Blood Count 5.24 M/mm3 (4.6-6.2); White Blood Count 7.3 K/mm3 (4.4-11.0)
[2019-06-22 09:39] LABS: Anion Gap 3 (5-15); BUN 17 mg/dL (7-18); BUN/Creat Ratio 16.5 RATIO (10-20); Calcium,Total 8.9 mg/dL (8.5-10.1); Chloride 109 mmol/L (98-107); Creatinine, Serum 1.03 mg/dL (0.70-1.30); EST Glomerular Filtration Rate 82 mL/min (>60); Est Glom Filt Rate - Afr Amer 100 mL/min (>60); Estimated Creatinine Clearance 92.53 ml/min; Glucose 124 mg/dL (74-106); Potassium 4.3 mmol/L (3.5-5.1); Sodium Level 139 mmol/L (136-145)
--- NOTE | 2019-06-22 10:02 | ED.DEP ---
ED Disposition - Plan for ED Patient: Instructions: CHEST PAIN, Uncertain Cause Referrals: Moses Carvajal MD [Primary Care Provider] - Seferino Gastelum MD [STAFF PHYSICIAN] - 1 Day
[2019-06-22 10:05] VITALS: BP 145/87; PULSE 64; RESP 15; O2SAT 97
== END 2019-06-22 10:10 | disposition home or self-care (01) ==
LOC: ED 09:23
PROVIDERS: Emergency Provider Emergency Medicine; PCP Family Medicine
DX: R07.9 Chest pain, unspecified (principal); R53.83 Other fatigue; R20.0 Anesthesia of skin; R20.2 Paresthesia of skin; I25.2 Old myocardial infarction; Z95.1 Presence of aortocoronary bypass graft; I10 Essential (primary) hypertension; E78.00 Pure hypercholesterolemia, unspecified
CPT/HCPCS: 71045; 80048; 84484; 85025; 93005; 99285; A4216

== ENCOUNTER → 2019-06-30 09:51 | Outpatient (CLI) | payer OTHER, SELFPAY ==
[2019-06-23 15:21] VITALS: BMI 31.4
--- NOTE | 2019-06-30 09:53 | CDU_ITS ---
Reason For Study: Vertigo Rt. Velocities/BP Lt. Velocities/BP Prox CCA 107.3/18.6 cm/sec. Prox CCA 124.7/26.1 cm/sec. Mid CCA 108.6/21.3 cm/sec. Mid CCA 93.7/22.5 cm/sec. Dist CCA 72.1/14.7 cm/sec. Dist CCA 77.7/21.2 cm/sec. Prox ICA 60.8/17.9 cm/sec. Prox ICA 60.5/17.6 cm/sec. Mid ICA 64/24.5 cm/sec. Mid ICA 67.9/27.4 cm/sec. Dist ICA 76.2/30 cm/sec. Dist ICA 80.2/34.8 cm/sec. Rt. ICA/CCA = 0.7. Lt. ICA/CCA = 0.9. Prox ECA 93/8.2 cm/sec. Prox ECA 77.7/10.2 cm/sec. Rt. Vert. 60.8/16.8 cm/sec. Lt. Vert. 52.2/16.3 cm/sec. Right Extracranial There is intimal thickening but no significant atherosclerotic plaque noted in the right common carotid artery. There is intimal thickening but no significant atherosclerotic plaque noted in the right internal carotid artery. High bifurcation noted in the right CCA. There is no significant atherosclerotic plaque noted in the right external carotid artery. Antegrade flow is noted in the right vertebral artery. Left Extracranial There is intimal thickening but no significant atherosclerotic plaque noted in the left common carotid artery. There is heterogeneous, irregular atherosclerotic plaque noted in the left internal carotid artery. High bifurcation noted in the left CCA. There is no significant atherosclerotic plaque noted in the left external carotid artery. Antegrade flow is noted in the left vertebral artery. Procedure Carotid Duplex [id number]. Exam performed in department. Interpretation Summary No hemodynamically significant plaque proximal right internal carotid artery with less than 50% stenosis <50% stenosis right external carotid Minimal plaque at the proximal left internal carotid artery with less than 50% stenosis <50% stenosis left external carotid Patent, antegrade, bilateral vertebrals Ordering Physician: Mikal Lester Referring Physician: Omar Carvajal MD Performed By: Sylvie Eubanks RVT
== END ==
PROVIDERS: PCP Family Medicine; Referring Provider Nurse Practitioner Family; Visit Provider Nurse Practitioner Family
DX: R42 Dizziness and giddiness (principal); I25.10 Atherosclerotic heart disease of native coronary artery without angina pectoris; I10 Essential (primary) hypertension; I25.2 Old myocardial infarction; Z95.5 Presence of coronary angioplasty implant and graft; I46.9 Cardiac arrest, cause unspecified; E78.2 Mixed hyperlipidemia; Z87.891 Personal history of nicotine dependence; Z95.1 Presence of aortocoronary bypass graft
CPT/HCPCS: 93880

== ENCOUNTER → 2019-11-20 17:23 | Outpatient (CLI) | payer OTHER, SELFPAY ==
[2019-06-23 15:21] VITALS: BMI 31.4
== END ==
PROVIDERS: PCP Family Medicine; Visit Provider Family Medicine
DX: Z71.89 Other specified counseling (principal)
CPT/HCPCS: 87635; U0003

== ENCOUNTER → 2020-03-07 13:52 | Outpatient (CLI) | payer OTHER, SELFPAY ==
[2019-12-31 16:04] VITALS: BMI 31.1
== END ==
PROVIDERS: PCP Family Medicine; Visit Provider Family Medicine
DX: U07.1 COVID-19 (principal)
CPT/HCPCS: 87635; U0003

== ENCOUNTER → 2020-07-25 10:02 | Outpatient (CLI) | payer OTHER, SELFPAY ==
[2020-07-25 09:30] VITALS: BMI 32.0
[2020-07-25 11:28] LABS: AST(SGOT) 17 U/L (15-37); Alanine Aminotransfer ALT/SGPT 30 U/L (16-61); Albumin, Serum 3.8 g/dL (3.2-5.0); Alkaline Phosphatase 59 U/L (45-117); Bilirubin, Direct 0.13 mg/dL (0.00-0.30); Cholesterol 163 mg/dL (200); Globulin 3.3 g/dL (2.2-4.2); High Density Lipoprotein 49 mg/dL; Protein, Total 7.1 g/dL (6.4-8.2); Triglycerides 68 mg/dL; Very Low Density Lipoprotein 14 mg/dL (5-40)
== END ==
PROVIDERS: PCP Family Medicine; Visit Provider Physician Assistant Medical
DX: I25.10 Atherosclerotic heart disease of native coronary artery without angina pectoris (principal); E78.2 Mixed hyperlipidemia
CPT/HCPCS: 36415; 80061; 80076

== ENCOUNTER 2021-05-13 11:05 | Emergency (ER) | payer OTHER, SELFPAY ==
--- NOTE | 2021-05-13 11:04 | EKG12_ITS ---
Test Reason : CP Blood Pressure : / mmHG Vent. Rate : 077 BPM Atrial Rate : 077 BPM P-R Int : 160 ms QRS Dur : 080 ms QT Int : 400 ms P-R-T Axes : 053 023 035 degrees QTc Int : 452 ms Normal sinus rhythm Normal ECG Confirmed by FRANSISCA PEÑALOZA, GRANT ([id number]), staff editor DRAKE KIRK ([id number]) on 05/15/2021 10:18:36 AM Referred By: Georgie Izquierdo Confirmed By:GRANT GONGORA MD
--- NOTE | 2021-05-13 11:45 | RAD_ITS ---
STUDY: X-RAY CHEST REASON FOR EXAM: Male, 50 years old. LEFT UPPER CHEST PRESSURE, PREV HX TX TECHNIQUE: Single AP portable view of the chest. COMPARISON: 06/22/2019. FINDINGS: The lungs are clear and expanded. There is no demonstrated pleural abnormality. Sternal cerclage wires are present from a prior sternotomy. Normal cardiac silhouette. Normal mediastinum and tico. Normal visualized pulmonary arteries. Normal visualized aortic arch and descending thoracic aorta. Stable soft tissues and osseous structures. There is no demonstrated abnormality of the visualized soft tissue structures of the upper abdomen. RAD/Chest 1 View (Portable) IMPRESSION: No active pulmonary disease. Electronically Signed: Darwin Crisostomo, at 12:07 [facility] ,
--- NOTE | 2021-05-13 14:02 | EDS_ITS ---
DATE OF SERVICE 05/13/21 CHIEF COMPLAINT: Chest pain. HISTORY OF PRESENT ILLNESS: The patient is a 50-year-old male who presents with a one-week history of left upper chest pain. He describes it as a pressure over the upper pectoral region. He denies any shortness of breath or diaphoresis. There has been no change in symptoms with exertion. PAST MEDICAL HISTORY: Prior cardiac arrest in 2003 as well as prior STEMI. He does have a cardiac stent and had a 2-way bypass surgery. PHYSICAL EXAMINATION: GENERAL: The patient is sitting upright in bed in no acute distress. VITAL SIGNS: Blood pressure 188/98, temperature 98.2, heart rate 81, respiratory rate 20, pulse ox 99% on room air. HEENT: Unremarkable. LUNGS: Lung sounds are clear. HEART: Regular rate and rhythm. ABDOMEN: Soft and nontender. EXTREMITIES: No edema or calf tenderness. NEUROLOGIC: Unremarkable. DIAGNOSTIC DATA: Portable chest x-ray is normal per my interpretation. Radiologist interpretation is also reviewed. EKG is sinus at 77 with no acute ischemia. CBC and chemistry studies are unremarkable. Troponin is 8 with one week of symptoms. EMERGENCY DEPARTMENT COURSE AND MEDICAL DECISION MAKING: The patient was given aspirin on arrival here. I did review his last cardiology visit. The patient states that he was told that at his next cardiology visit they would reschedule another stress test as it has been some time since he had this. IMPRESSION: Chest pain. PLAN: With one week of symptoms and a normal EKG and troponin, I do feel that the patient can go home this weekend. He will call the calliope player on Saturday to be seen and scheduled for further testing. He is to return to the emergency room immediately for any change in symptoms.
[2021-05-13 21:23] LABS: Absolute Lymphocyte Count 1.52 X10^3/uL (0.83-4.51); Absolute Neutrophil Count 4.1 X10^3/uL (2.0-7.7); Basophil# 0.03 X10^3/uL; Basophil% 0.5 % (0-1); Eosinophil# 0.08 X10^3/uL; Eosinophils% 1.3 % (0-5); Hematocrit 42.6 % (40-54); Hemoglobin 14.4 g/dL (13.0-16.5); Lymphocyte # 1.52 X10^3/ul (0.83-4.51); Lymphocyte % 24.6 % (19-41); Mean Corp Hgb Conc 33.8 g/dL (32-36); Mean Corpuscular Hgb 29.5 pg (27.0-32.0); Mean Corpuscular Volume 87.3 fL (80-94); Mean Platelet Vol. 9.8 fl (6.2-12.0); Monocyte# 0.47 X10^3/uL; Monocyte% 7.6 % (0-10); NRBC Flagged by Analyzer 0 % (0-5); Neutrophil # 4.07 X10^3/uL (2.7-7.7); Neutrophil % 65.7 % (47-70); Platelet Count 307 K/mm3 (150-450); RBC Distribution Width CV 12.7 % (11.6-14.6); RBC Distribution Width SD 40.3 fl (35.1-43.9); Red Blood Count 4.88 M/mm3 (4.6-6.2); White Blood Count 6.2 K/mm3 (4.4-11.0)
[2021-05-14 01:20] LABS: Anion Gap 3 (5-15); BUN 13 mg/dL (7-18); BUN/Creat Ratio 12.7 RATIO (10-20); Calcium,Total 8.5 mg/dL (8.5-10.1); Chloride 106 mmol/L (98-107); Creatinine, Serum 1.02 mg/dL (0.70-1.30); EST Glomerular Filtration Rate 83 mL/min (>60); Est Glom Filt Rate - Afr Amer 100 mL/min (>60); Glucose 118 mg/dL (74-106); Potassium 4.3 mmol/L (3.5-5.1); Sodium Level 137 mmol/L (136-145); Troponin-I HS 8 pg/mL (3.0-78.0)
== END 2021-05-13 14:20 | disposition home or self-care (01) ==
LOC: ED 05-15 14:13
PROVIDERS: Emergency Provider Emergency Medicine; PCP Family Medicine; Referring Provider Emergency Medicine; Visit Provider Emergency Medicine
DX: R07.9 Chest pain, unspecified (principal); I25.2 Old myocardial infarction; Z86.74 Personal history of sudden cardiac arrest; Z95.1 Presence of aortocoronary bypass graft; Z95.5 Presence of coronary angioplasty implant and graft
CPT/HCPCS: 36415; 71045; 80048; 84484; 85025; 93005; 99285

== ENCOUNTER → 2021-08-29 | Outpatient (CLI) | payer OTHER, SELFPAY ==
--- NOTE | 2021-08-29 16:48 | RAD_ITS ---
EXAM: XR RIGHT ANKLE COMPLETE, 3 OR MORE VIEWS CLINICAL INDICATION: Right ankle pain without injury TECHNIQUE: Frontal, lateral and oblique views of the right ankle. This report was created using Mod[employer] report generation technology. COMPARISON: None. FINDINGS: BONES/JOINTS: There is a calcaneal spur. There is an enthesophyte involving the posterior superior calcaneus at the site of insertion of the Achilles tendon. No acute fracture. No subluxation. Normal alignment. Preservation of the joint space. No sclerotic or destructive changes observed. SOFT TISSUES: Unremarkable. No soft tissue swelling or gas. No radiopaque foreign body. RAD/Ankle min 3 Views IMPRESSION: No acute findings in the right ankle. Electronically Signed: Remington Nascimento MD at 17:02 EDT Reading Location ID and State: [facility] / [place] , Service support ,
== END | disposition home or self-care (01) ==
LOC: MTRAD 16:47
PROVIDERS: PCP Family Medicine; Referring Provider Physician Assistant Surgical; Visit Provider Physician Assistant Surgical
DX: M25.571 Pain in right ankle and joints of right foot (principal)
CPT/HCPCS: 73610

== ENCOUNTER 2022-12-19 08:44 | Emergency (ER) | payer OTHER, SELFPAY ==
[2022-12-19 08:45] VITALS: BP 171/83; PULSE 82; RESP 18; TEMP 36.7; O2SAT 99; BMI 35.9
--- NOTE | 2022-12-19 08:46 | EKG12_ITS ---
Test Reason : CP Blood Pressure : / mmHG Vent. Rate : 076 BPM Atrial Rate : 076 BPM P-R Int : 164 ms QRS Dur : 080 ms QT Int : 384 ms P-R-T Axes : 049 012 037 degrees QTc Int : 432 ms Normal sinus rhythm Normal ECG Confirmed by FRANSISCA PEÑALOZA, GRANT ([id number]), news copy editor MIR MCELROY ([id number]) on 12/21/2022 1:04:27 PM Referred By: Confirmed By:GRANT GONGORA MD
--- NOTE | 2022-12-19 08:46 | ED.VIS.CHEST ---
HPI History of Present Illness Chief Complaint: Chest Pain Detail of Chief Complaint: Crushing left sided chest pain Informant: patient Onset/Context/Timing Onset: Hours (0.33) Activity at onset: sudden and other (Getting ready for work) Timing: Continuous Quality: Positive for - (Crushing) Location: - (Left-sided chest midclavicular line to anterior axillary line) Current Severity: Moderate Maximum Severity: Severe Worsened By: Nothing Relieved By: Nothing Associated Symptoms: Negative for Nausea, Vomiting, Diaphoresis, Dyspnea, Cough, Fever, Lightheadedness, Acid Reflux or Palpitations Narrative Narrative: Patient is a 52-year-old male with known history of coronary disease, hypertension, hyperlipidemia who had a stent placed March 2017 and two-vessel bypass July 2017 who presents because of crushing left-sided chest pain with no associated symptoms or radiation. There is no alleviating, exacerbating precipitating factors. This occurred 20 minutes prior to arrival while he was getting ready for work. He states has had a nagging pain that was left side has been going on for a month and thought it was nothing significant. He became concerned when it became a crushing pain. He denies history of VTE. Has no risk factors for VTE. Denies leg pain, swelling discoloration. He denies symptoms of claudication. He denies recent exertional angina or dyspnea. He denies history of hiatal hernia, reflux, peptic ulcer disease. He denies black or maroon-colored stool. Recent Illness/Hospitalization: No CVD Risk Factors: Positive for Hypertension, Hypercholesterolemia, Family History 1' </=55 and Smoking (Former smoker. 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) JUAN M (obstructive sleep apnea) Home Medications aspirin 81 mg tablet,delayed release 81 mg PO DAILY@0800 antiplatelet 04/13/13 [History Last Taken 12/23/17 81 MG] escitalopram oxalate 10 mg tablet 10 mg PO DAILY 12/31/19 [History Last Taken Unknown] atorvastatin 80 mg tablet 80 mg PO QHS CHOLESTEROL #90 tabs 02/15/22 [Rx Last Taken Unknown] metoprolol tartrate 25 mg tablet 25 mg PO BID #180 tabs 02/15/22 [Rx Last Taken Unknown] clopidogrel 75 mg tablet 75 mg PO DAILY BLOOD THINNER #90 tabs 07/20/22 [Rx Last Taken Unknown] lisinopril 20 mg tablet 20 mg PO BID #180 tabs 08/13/22 [Rx Last Taken Unknown] Allergy/AdvReac Type Severity Reaction Status Date / Time Penicillins [PCN] Allergy Rash Verified 12/19/22 08:44 Family History Mother Diabetes Hypertension HLD (hyperlipidemia) Grandmother CAD (coronary artery disease) Grandfather CAD (coronary artery disease) Surgical History H/O coronary artery bypass surgery (07/16/17) History of coronary artery stent placement (04/01/17) History of left heart catheterization Postsurgical percutaneous transluminal coronary angioplasty (PTCA) status (04/01/17) Social History Smoking Status: Former smoker how long ago did patient quit smokin + years ago alcohol intake: current alcohol intake frequency: holidays/special occasions only Alcohol type: beer, wine and hard liquor substance use type: does not use caffeine: Yes Type: coffee Number of servings: 3 what type of physical activity do you participate in: none seatbelt use: sometimes do you feel safe at home: Yes ROS ROS ED Constitutional Constitutional ED: Denies chills, fever(s), subjective, sweats or weight loss Eyes Eyes: Reports none ENT ENT ED: Denies ear pain, rhinorrhea or sore throat Cardiovascular Cardiovascular: Reports as per HPI; Denies orthopnea or paroxysmal nocturnal dyspnea Respiratory/Chest Respiratory/Chest: Denies cough, dyspnea, dyspnea on exertion, orthopnea or paroxysmal nocturnal dyspnea Gastrointestinal Gastrointestinal: Denies abdominal pain, melena, nausea or vomiting Musculoskeletal Musculoskeletal: Denies arthralgias, back pain, myalgias or neck pain Integumentary Denies rash Neurologic Neurologic: Denies headache(s) or paresthesias Endocrine Endocrinology: Denies cold intolerance or heat intolerance EXAM Physical Exam Const Vital Signs: 12/19/22 08:45 12/19/22 08:45 12/19/22 08:46 Temperature 98.1 F Temperature Source Oral Pulse Rate 82 Respiratory Rate 18 Respiratory Effort Normal Non-Labored Blood Pressure 171/83 H Blood Pressure Mean 112 Pulse Ox 99 Oxygen Delivery Method Room Air Room Air 12/19/22 09:44 12/19/22 10:00 12/19/22 11:00 Temperature Temperature Source Pulse Rate 60 61 56 L Respiratory Rate 21 H 25 H 20 H Respiratory Effort Blood Pressure 135/65 H 122/69 H 131/77 H Blood Pressure Mean 88 86 95 Pulse Ox 95 97 100 Oxygen Delivery Method Room Air Room Air Room Air Positive well nourished, well developed and obese; Negative for cachectic, contractures or unkempt General Appearance ED: well developed and NAD; Negative for unkempt, cachectic, contractures or pallor Nutritional Appearance: obese; Negative for cachectic HEENT Reports moist mucous membranes normocephalic and atraumatic Eyes PERRL and EOMs intact bilaterally General Eye ED: Negative for pale conjunctiva or scleral icterus Neck no lymphadenopathy, supple and no JVD Chest Wall inspection of chest normal and palpation of chest normal Resp normal respiratory effort and clear to auscultation bilaterally Cardio regular rate, regular rhythm, S1 normal heart sound, S2 normal heart sound and no murmurs GI normal to inspection, nondistended, normoactive bowel sounds, soft to palpation, non-tender, non-distended and no masses; Negative for hepatosplenomegaly Back/Spine no thoracic nor lumbar tenderness Back/Spine Narrative: Inspection is normal. Extremity normal to inspection Extremity Narrative: There is no asymmetry, swelling, discoloration, leg vein distention, palpable cords or tenderness along the distribution of the deep venous system. General Extremety ED: Negative for pulses abnormal General Extremity: Negative for pulses abnormal Neuro oriented x3, CN's II-XII intact bilaterally and gait normal Sensorium / Orientation: awake and alert Psych mental status grossly normal Appearance: Negative for unkempt Skin no rashes or lesions noted and no wounds General Skin Exam: Negative for jaundice or pallor MDM MDM MDM Narrative Medical decision making narrative: Differential diagnosis is cardiac versus noncardiac etiology. In light of patient's multiple risk factors cardiac work-up was initiated which included EKG, chest x-ray appropriate blood work and troponin with 2-hour troponin. Patient did receive aspirin. Prior records were reviewed and as mentioned in the HPI he had a stent placed in March 2017 and two-vessel bypass surgery July 2017. History & Record Review Additional record(s) reviewed:: Prior outpatient record, Prior ED visit and Prior labs Lab Data Attestation: I reviewed the patient's lab results. Lab results narrative: CBC normal. Basic metabolic panel is unremarkable. Glucose is 114 with normal CO2 and anion gap. First troponin is normal, 8. 2 hours pending. 2-hour troponin is 8 which is normal. Delta is 0. Therefore will discharge patient to home. Labs: Laboratory Results - last 24 hr 12/19/22 12/19/22 08:47 10:51 WBC 7.5 RBC 5.17 Hgb 15.1 Hct 46.1 MCV 89.2 MCH 29.2 MCHC 32.8 RDW Std Deviation 42.3 RDW Coeff of Jenn 12.8 Plt Count 342 MPV 9.7 Immature Gran % (Auto) 0.400 Neut % (Auto) 61.2 Lymph % (Auto) 27.1 [place] % (Auto) 7.8 Eos % (Auto) 3.0 Baso % (Auto) 0.5 Absolute Neuts (auto) 4.6 Absolute Lymphs (auto) 2.02 Nucleated RBC % 0 Sodium 139 Potassium 4.0 Chloride 106 Carbon Dioxide 30.0 Anion Gap 3 L BUN 14 Creatinine 1.05 Estim Creat Clear Calc 81.43 Est GFR (MDRD) Af Amer 96 Est GFR (MDRD) Non-Af 80 BUN/Creatinine Ratio 13.3 Glucose 114 H Calcium 8.7 Troponin I High Sens 8 8 Radiography Chest X-Ray - ED: 1 View and Read by ED Physician (Single view portable chest x-ray was entirely reviewed interpreted by me. Median sternotomy wires noted. Cardiac silhouette Loret[place] and size unremarkable. Lung parenchyma reveals minimal chronic changes. There is no effusion or infiltrate. Perihilar region is normal. [place] structures are ashwini) Diagnostic Testing: Clinical Impression(s) from Imaging Studies Chest X-Ray 12/19/22 08:53 IMPRESSION: Stable examination. No acute abnormality is seen. Electronically Signed: Pascual Jacobs MD at 9:11 EDT , EKG Initial EKG: Attestation: I personally reviewed and interpreted this EKG as follows: Interpretation: Sinus Rhythm (Rate is 75. The EKG is normal with pain. Parables 164 ms. QRS duration 80 ms. QT duration 384 ms. Mcneal is normal.) Prior EKG tracings: not available for review Differential Diagnosis Chest pain/SOB: pulmonary embolism Reason(s) PE less likely: Positive for PERC negative, ACS ACS: Positive for no evidence of ACS based on cardiac biomarkers and EKG without ischemia, pneumothorax Reason(s) pneumothorax less likely: Positive for bilateral breath sounds and [employer] withhout PTX and aortic dissection Reason(s) Aortic dissection less likely:: Positive for normal vascular exam, normal neurological exam, no significant risk factors for dissection, no widened mediastinum on CXR, pain not sudden onset, no ripping/tearing pain, no pain to back and blood pressure appropriate in ED Treatment and Re-Evaluation :: Patient was made aware of his laboratory results and told him plan is for 2-hour troponin. Discharge Plan Triage Chief Complaint: Chest Pain ED Provider: Tommie Rasheed Dx/Rx/DC Orders Clinical Impression: Hyperlipemia, mixed, Left chest pressure, H/O coronary artery bypass surgery, Hypertension Instructions: ED Chest Pain, Noncardiac, ED Chest Pain, Uncertain Cause Prescriptions: No Action escitalopram oxalate 10 mg tablet 10 mg PO DAILY metoprolol tartrate 25 mg tablet 25 mg PO BID Qty: 180 3RF atorvastatin 80 mg tablet 80 mg PO QHS Qty: 90 3RF aspirin 81 MG tablet 81 mg PO DAILY@0800 Patient Comments: antiplatelet clopidogrel 75 mg tablet 75 mg PO DAILY Qty: 90 3RF lisinopril 20 mg tablet 20 mg PO BID Qty: 180 3RF Primary Care Provider: Moses Carvajal Referrals: Moses Carvajal MD [Primary Care Provider] - 5-7 Days Disposition Disposition: Home, Self Care
--- NOTE | 2022-12-19 08:53 | RAD_ITS ---
STUDY: X-RAY CHEST REASON FOR EXAM: Male, 52 years old. 2 month history of chest pain. TECHNIQUE: Single AP portable view of the chest. COMPARISON: Comparison is made with prior study dated June 22, 2019. FINDINGS: EKG electrodes are seen. Stable elevation of the right hemidiaphragm. Lungs are clear. There is no demonstrated pleural abnormality. Sternal cerclage wires are present from a prior sternotomy. Normal mediastinum and tico. Normal visualized pulmonary arteries. Normal visualized aortic arch and descending thoracic aorta. Normal visualized thoracic spine. Normal visualized ribs, clavicles, and shoulders. There is no demonstrated abnormality of the visualized soft tissue structures of the upper abdomen. RAD/Chest 1 View (Portable) IMPRESSION: Stable examination. No acute abnormality is seen. Electronically Signed: Pascual Jacobs MD at 9:11 EDT ,
[2022-12-19 08:54] LABS: Absolute Lymphocyte Count 2.02 X10^3/uL (0.83-4.51); Absolute Neutrophil Count 4.6 X10^3/uL (2.0-7.7); Basophil# 0.04 X10^3/uL; Basophil% 0.5 % (0-1); Eosinophil# 0.22 X10^3/uL; Hematocrit 46.1 % (40-54); Hemoglobin 15.1 g/dL (13.0-16.5); Lymphocyte # 2.02 X10^3/ul (0.83-4.51); Lymphocyte % 27.1 % (19-41); Mean Corp Hgb Conc 32.8 g/dL (32-36); Mean Corpuscular Hgb 29.2 pg (27.0-32.0); Mean Corpuscular Volume 89.2 fL (80-94); Mean Platelet Vol. 9.7 fl (6.2-12.0); Monocyte# 0.58 X10^3/uL; Monocyte% 7.8 % (0-10); NRBC Flagged by Analyzer 0 % (0-5); Neutrophil # 4.56 X10^3/uL (2.7-7.7); Neutrophil % 61.2 % (47-70); Platelet Count 342 K/mm3 (150-450); RBC Distribution Width CV 12.8 % (11.6-14.6); RBC Distribution Width SD 42.3 fl (35.1-43.9); Red Blood Count 5.17 M/mm3 (4.6-6.2); White Blood Count 7.5 K/mm3 (4.4-11.0)
[2022-12-19] MEDS: Aspirin 81 MG TAB.CHEW 324 MG PO (08:58)
[2022-12-19 09:12] LABS: Anion Gap 3 (5-15); BUN 14 mg/dL (7-18); BUN/Creat Ratio 13.3 RATIO (10-20); Calcium,Total 8.7 mg/dL (8.5-10.1); Chloride 106 mmol/L (98-107); Creatinine, Serum 1.05 mg/dL (0.70-1.30); EST Glomerular Filtration Rate 80 mL/min (>60); Est Glom Filt Rate - Afr Amer 96 mL/min (>60); Estimated Creatinine Clearance 81.43 ml/min; Glucose 114 mg/dL (74-106); Sodium Level 139 mmol/L (136-145); Troponin-I HS (w/2H Reflex) 8 pg/mL (3.0-78.0)
[2022-12-19 09:44] VITALS: BP 135/65; PULSE 60; RESP 21; O2SAT 95
[2022-12-19 10:00] VITALS: BP 122/69; PULSE 61; RESP 25; O2SAT 97
[2022-12-19 10:50] LABS: Reflex Troponin-HS? (from REC) Y
[2022-12-19 11:00] VITALS: BP 131/77; PULSE 56; RESP 20; O2SAT 100
[2022-12-19 11:15] LABS: Troponin-I HS 8 pg/mL (3.0-78.0)
[2022-12-19 11:34] VITALS: BP 135/69
== END 2022-12-19 11:37 | disposition home or self-care (01) ==
PROVIDERS: Emergency Provider Emergency Medicine; PCP Family Medicine; Visit Provider Emergency Medicine
DX: R07.89 Other chest pain (principal); Z87.891 Personal history of nicotine dependence; I10 Essential (primary) hypertension; I25.10 Atherosclerotic heart disease of native coronary artery without angina pectoris; E78.5 Hyperlipidemia, unspecified; Z95.1 Presence of aortocoronary bypass graft; E66.9 Obesity, unspecified; Z79.82 Long term (current) use of aspirin; I25.2 Old myocardial infarction; G47.33 Obstructive sleep apnea (adult) (pediatric)
CPT/HCPCS: 71045; 80048; 84484; 85025; 93005; 99285; A4216

== ENCOUNTER 2023-04-22 12:58 | Emergency (ER) | payer OTHER, SELFPAY ==
[2023-04-22 12:58] VITALS: BP 218/91; PULSE 76; RESP 16; TEMP 36.7; O2SAT 99
--- NOTE | 2023-04-22 13:03 | EDS_ITS ---
HPI History of Present Illness Chief Complaint: Chest Pain Informant: patient Onset/Context/Timing Onset: Today Activity at onset: gradual Timing: Continuous Quality: Positive for Stabbing Location: Left Chest Worsened By: Nothing Relieved By: Nothing Associated Symptoms: Positive for Lightheadedness; Negative for Nausea, Vomiting, Diaphoresis, Dyspnea, Cough, Fever, Acid Reflux or Palpitations Narrative Narrative: Patient presents with chest pain that began today. Patient states the pain is mainly over the left anterior chest. Patient states he was having some pain in his left lateral chest over the past couple weeks. Patient states that today he noted some pain over the left anterior chest. Patient describes it as stabbing. Patient states nothing makes it better and nothing makes it worse. Patient admits to some lightheadedness with this. Patient states he also had a warm sensation across his upper abdomen and down into his legs. Patient also noticed that his blood pressure was elevated today. Patient did take his antihy pertensive medications today. 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) JUAN M (obstructive sleep apnea) Home Medications aspirin 81 mg tablet,delayed release 81 mg PO DAILY@0800 antiplatelet 04/13/13 [History Last Taken 12/23/17 81 MG] escitalopram oxalate 10 mg tablet 10 mg PO DAILY 12/31/19 [History Last Taken Unknown] lisinopril 20 mg tablet 20 mg PO BID #180 tabs 08/13/22 [Rx Last Taken Unknown] atorvastatin 80 mg tablet 80 mg PO QHS CHOLESTEROL #90 tabs 03/18/23 [Rx Last Taken Unknown] metoprolol tartrate 25 mg tablet 25 mg PO BID #180 tabs 03/18/23 [Rx Last Taken Unknown] Allergy/AdvReac Type Severity Reaction Status Date / Time Penicillins [PCN] Allergy Rash Verified 03/26/23 08:55 Family History Mother Diabetes Hypertension HLD (hyperlipidemia) Grandmother CAD (coronary artery disease) Grandfather CAD (coronary artery disease) Surgical History H/O coronary artery bypass surgery (07/16/17) History of coronary artery stent placement (04/01/17) History of left heart catheterization Postsurgical percutaneous transluminal coronary angioplasty (PTCA) status (04/01/17) Social History Smoking Status: Former smoker how long ago did patient quit smokin + years ago alcohol intake: current alcohol intake frequency: holidays/special occasions only Alcohol type: beer, wine and hard liquor substance use type: does not use caffeine: Yes Type: coffee Number of servings: 3 what type of physical activity do you participate in: none seatbelt use: sometimes do you feel safe at home: Yes ROS ROS ED Constitutional Constitutional ED: Denies chills or fever(s) Eyes Eyes: Denies blurry vision or change in vision ENT ENT ED: Reports rhinorrhea; Denies sore throat Cardiovascular Cardiovascular: Reports chest pain; Denies palpitations Respiratory/Chest Respiratory/Chest: Denies cough or dyspnea Gastrointestinal Gastrointestinal: Denies nausea or vomiting Genitourinary Genitourinary ED: Denies dysuria or hematuria Musculoskeletal Musculoskeletal: Reports neck pain; Denies back pain Integumentary Denies abscess or rash Neurologic Neurologic: Reports headache(s); Denies weakness Allergic/Immunologic Allergic/Immunologic ED: Denies mouth swelling or urticaria EXAM Physical Exam Const Vital Signs: 04/22/23 12:58 04/22/23 13:01 04/22/23 13:18 Temperature 98.1 F Temperature Source Temporal Pulse Rate 76 66 Respiratory Rate 16 20 H Respiratory Effort Normal Blood Pressure 218/91 H 174/85 H Blood Pressure Mean 133 114 Pulse Ox 99 96 Oxygen Delivery Method Room Air Room Air 04/22/23 13:28 04/22/23 13:42 Temperature Temperature Source Pulse Rate 71 Respiratory Rate Respiratory Effort Blood Pressure 158/88 H Blood Pressure Mean Pulse Ox 96 Oxygen Delivery Method Room Air Positive well nourished and well developed General Appearance ED: well developed and NAD HEENT Reports moist mucous membranes Neck supple and no JVD Chest Wall inspection of chest normal and palpation of chest normal Resp normal respiratory effort and clear to auscultation bilaterally Cardio regular rate and regular rhythm GI soft to palpation, non-tender and non-distended Extremity normal to inspection General Extremety ED: Negative for edema or tenderness General Extremity: Negative for edema Neuro oriented x3, CN's II-XII intact bilaterally and no sensory deficits noted Sensorium / Orientation: awake and alert Motor Exam: strength 5/5 throughout Psych mental status grossly normal Heart Score History: Slightly/Non-Suspicious ECG: Normal Age: >45 - <65 years Risk Factors: >/= 3 Risk Factors or History of CAD Troponin: </= Normal Limit Score: 3 MDM MDM MDM Narrative Medical decision making narrative: Differential diagnosis includes cardiac dysrhythmia, cardiac ischemia, pneumonia, pneumothorax, pulmonary embolism, aortic dissection, musculoskeletal pain, and anxiety. EKG will be obtained to assess for cardiac dysrhythmia and cardiac ischemia. Chest x-ray will be obtained to assess for pneumonia, pneumothorax, and widened mediastinum. CBC will be obtained to assess for leukocytosis and anemia. Basic metabolic profile will be obtained to assess for electrolyte abnormality and renal function. High-sensitivity troponin will be obtained to assess for cardiac ischemia. D-dimer will be obtained to assess for aortic dissection and pulmonary embolism. Lab Data Attestation: I reviewed the patient's lab results. Lab results narrative: CBC was reviewed and was within normal limits. Basic metabolic profile was reviewed and was normal. D-dimer was reviewed and was normal at 0.28. High- sensitivity troponin was reviewed and was normal at 13. Labs: Laboratory Results - last 24 hr 04/22/23 13:00 WBC 7.3 RBC 5.22 Hgb 15.2 Hct 45.9 MCV 87.9 MCH 29.1 MCHC 33.1 RDW Std Deviation 41.4 RDW Coeff of Jenn 12.8 Plt Count 328 MPV 10.0 Immature Gran % (Auto) 0.400 Neut % (Auto) 62.3 Lymph % (Auto) 28.7 Dunn % (Auto) 5.4 Eos % (Auto) 2.6 Baso % (Auto) 0.6 Absolute Neuts (auto) 4.5 Absolute Lymphs (auto) 2.08 Nucleated RBC % 0 D-Dimer Quant (PE/DVT) 0.28 Sodium 139 Potassium 3.6 Chloride 106 Carbon Dioxide 30.0 Anion Gap 3 L BUN 15 Creatinine 1.04 Est GFR (MDRD) Af Amer 97 Est GFR (MDRD) Non-Af 80 BUN/Creatinine Ratio 14.4 Glucose 165 H Calcium 9.0 Troponin I High Sens 13 Radiography Diagnostic Testing: Clinical Impression(s) from Imaging Studies Chest X-Ray 04/22/23 13:21 IMPRESSION: No radiographic evidence of acute cardiopulmonary disease. Electronically Signed: Darwin Crisostomo MD at 13:56 EST , Portable 1 view chest x-ray was obtained. On my independent interpretation, lung colvin are clear. There is normal cardiac silhouette. Bony thorax is normal. There is no acute process noted. Radiologist also interpreted the x- ray and agrees. EKG Initial EKG: Attestation: I personally reviewed and interpreted this EKG as follows: Interpretation: Sinus Rhythm (73) and No Acute Injury Pattern Comments: EKG was obtained. On my independent interpretation, it showed a normal sinus rhythm with a rate of 73. IN interval, QRS interval, and QTc intervals were all normal. [place] was normal. There are no acute ST or T wave changes. Prior EKG tracings: available for review Prior: Unchanged (12/19/2022) Treatment and Re-Evaluation :: Patient was given aspirin. Patient was given sublingual nitroglycerin. Patient's blood pressure improved with this. Patient states his chest pain improved with this. Patient feels better and wants to go home. Patient has a HEART score of 3. Patient was advised that this is low risk for acute cardiac event. Patient was advised to continue to monitor his blood pressures. Patient was instructed to keep a log of his blood pressures and follow-up with his primary care physician in 3 to 5 days for reevaluation. Patient was instructed to return if worse in any way. Patient understood and was agreeable with the plan. All questions were answered. Discharge Plan Triage Chief Complaint: Chest Pain ED Provider: Nehemias Blackwell Dx/Rx/DC Orders Clinical Impression: Essential hypertension, Chest pain Instructions: ED Chest Pain, Uncertain Cause, ED Hypertension, Established Prescriptions: No Action escitalopram oxalate 10 mg tablet 10 mg PO DAILY aspirin 81 MG tablet 81 mg PO DAILY@0800 Patient Comments: antiplatelet lisinopril 20 mg tablet 20 mg PO BID Qty: 180 3RF metoprolol tartrate 25 mg tablet 25 mg PO BID Qty: 180 3RF atorvastatin 80 mg tablet 80 mg PO QHS Qty: 90 3RF Primary Care Provider: Moses Carvajal Referrals: Moses Carvajal MD [Primary Care Provider] - 3-5 Days Disposition Disposition: Home, Self Care
[2023-04-22 13:18] VITALS: BP 174/85; PULSE 66; RESP 20; O2SAT 96
--- NOTE | 2023-04-22 13:21 | EKG12_ITS ---
Test Reason : CP Blood Pressure : / mmHG Vent. Rate : 073 BPM Atrial Rate : 073 BPM P-R Int : 164 ms QRS Dur : 078 ms QT Int : 386 ms P-R-T Axes : 066 031 062 degrees QTc Int : 425 ms Normal sinus rhythm Normal ECG Confirmed by FRANSISCA PEÑAOLZA, GRANT ([id number]), news editor DRAKE KIRK ([id number]) on 04/23/2023 10:01:08 AM Referred By: LYDIA/SYED Confirmed By:GRANT GONGORA MD
--- NOTE | 2023-04-22 13:21 | RAD_ITS ---
INDICATION: chest pain EXAMINATION/TECHNIQUE: X-RAY - XR Chest 1 View COMPARISON: Prior study dated: 12/19/2022. FINDINGS: LINES/DEVICES: None. LUNGS: No consolidation, edema or effusion. No pneumothorax. Unchanged mild elevation of the right hemidiaphragm.. MEDIASTINUM AND CARDIOVASCULAR STRUCTURES: Cardiac silhouette not enlarged. Status post median sternotomy. Central airways and mediastinal contour are unremarkable. BONES AND SOFT TISSUES: Unremarkable. RAD/Chest 1 View (Portable) IMPRESSION: No radiographic evidence of acute cardiopulmonary disease. Electronically Signed: Darwin Crisostomo MD at 13:56 EST ,
[2023-04-22 13:28] VITALS: O2SAT 96
[2023-04-22 13:29] LABS: Absolute Lymphocyte Count 2.08 X10^3/uL (0.83-4.51); Absolute Neutrophil Count 4.5 X10^3/uL (2.0-7.7); Basophil# 0.04 X10^3/uL; Basophil% 0.6 % (0-1); Eosinophil# 0.19 X10^3/uL; Eosinophils% 2.6 % (0-5); Hematocrit 45.9 % (40-54); Hemoglobin 15.2 g/dL (13.0-16.5); Lymphocyte # 2.08 X10^3/ul (0.83-4.51); Lymphocyte % 28.7 % (19-41); Mean Corp Hgb Conc 33.1 g/dL (32-36); Mean Corpuscular Hgb 29.1 pg (27.0-32.0); Mean Corpuscular Volume 87.9 fL (80-94); Monocyte# 0.39 X10^3/uL; Monocyte% 5.4 % (0-10); NRBC Flagged by Analyzer 0 % (0-5); Neutrophil # 4.52 X10^3/uL (2.7-7.7); Neutrophil % 62.3 % (47-70); Platelet Count 328 K/mm3 (150-450); RBC Distribution Width CV 12.8 % (11.6-14.6); RBC Distribution Width SD 41.4 fl (35.1-43.9); Red Blood Count 5.22 M/mm3 (4.6-6.2); White Blood Count 7.3 K/mm3 (4.4-11.0)
[2023-04-22] MEDS: Aspirin 81 MG TAB.CHEW 324 MG PO (13:41)
[2023-04-22 13:42] VITALS: BP 158/88; PULSE 71
[2023-04-22 13:42] LABS: D-Dimer Quantitative (DVT/PE) 0.28 FEU/ug/m (0.27-0.49)
[2023-04-22] MEDS: Nitroglycerin SL (ED/IMG/CATH) 0.4 MG TABLET 0.400000000000000022 MG SL (13:42)
[2023-04-22 13:47] LABS: Anion Gap 3 (5-15); BUN 15 mg/dL (7-18); BUN/Creat Ratio 14.4 RATIO (10-20); Chloride 106 mmol/L (98-107); Creatinine, Serum 1.04 mg/dL (0.70-1.30); EST Glomerular Filtration Rate 80 mL/min (>60); Est Glom Filt Rate - Afr Amer 97 mL/min (>60); Glucose 165 mg/dL (74-106); Potassium 3.6 mmol/L (3.5-5.1); Sodium Level 139 mmol/L (136-145); Troponin-I HS 13 pg/mL (3.0-78.0)
[2023-04-22 13:52] VITALS: BMI 35.4
[2023-04-22 14:36] VITALS: BP 129/63; PULSE 60; RESP 16; O2SAT 97
== END 2023-04-22 14:41 | disposition home or self-care (01) ==
PROVIDERS: Emergency Provider Emergency Medicine; PCP Family Medicine; Visit Provider Emergency Medicine
DX: R07.9 Chest pain, unspecified (principal); I10 Essential (primary) hypertension; Z87.891 Personal history of nicotine dependence; I25.10 Atherosclerotic heart disease of native coronary artery without angina pectoris; E78.2 Mixed hyperlipidemia; I25.2 Old myocardial infarction; Z79.82 Long term (current) use of aspirin; Z79.899 Other long term (current) drug therapy; Z95.5 Presence of coronary angioplasty implant and graft
CPT/HCPCS: 71045; 80048; 84484; 85025; 85379; 93005; 99284; A4216

== ENCOUNTER → 2023-04-30 | Outpatient (CLI) | payer OTHER, SELFPAY ==
--- OUTSIDE RECORDS SUMMARY | 2023-04-30 06:58 | XMS RPT_ITS | CCD ---
Author Name Unknown Address [id number] [place] [address] Organization [employer] Results Test Name Value Interpretation Reference Range Facil ity Procedures Date Procedure Procedure Detail Performing Clinician Start: 12-26-2018 Electrocardiogram Summary Purpose Family History No Family History Records FoundNo Family History Records Found Advance Directives No Advanced Directives Records FoundNo Advanced Directives Records Found Hospital Course Note HNO ID: [id number] Author: Zehra loja ([employer]inery [employer] Worker) Tom Service: Hospital Medicine Author Type: Nurse Practitioner Type: Discharge Summary Filed: 12/30/2018 11:15 AM Note Text: Attestation signed by Noemy Freitas at 12/30/2018 11:33 AM Attending Note I have reviewed the PA/SWORD SWALLOWER note. Additions or changes: None Signature: Noemy Freitas MD Date: 12/30/2018 Time: 11:33 AM DISCHARGE SUMMARY PATIENT NAME: Stefan Negron ADMISSION DATE: 12/29/2018 DISCHARGE DATE: 12/30/2018 Attending Physician: Noemy Freitas Code Status: Not on file Highest Readmission Risk Score: 8 The 30 day readmissions risk score is derived from an internally validated risk model which evaluates patient level characteristics, utilization history, medication orders and lab results up until the day of discharge. Patients with a score of 40 (more content not included)... Additional Source Comments (unrecognized sect ion and content) No Status Records FoundNo Status Records Found INFORMATION SOURCE (unrecogn ized section and content) DATE CREATED AUTHOR AUTHOR'S ORGANIZ ATION 06/08/2019 [facility] FOR RECORDS PERTAINING TO PATIENTS WHO ARE OR HAVE BEEN ENROLLED IN A CHEMICAL DEPENDENCY/SUBSTANCEABUSE PROGRAM, SOME INFORMATION MAY BE OMITTED. This clinical summary was aggregated from multiple sources. Caution should be exercised in using it in the provision of clinical care. This summary normalizes information from multiple sources, and as a consequence, information in this document may materially change the coding, format and clinical context of patient data. In addition, data may be omitted in some cases. CLINICAL DECISIONS SHOULD BE BASED ON THE PRIMARY CLINICAL RECORDS. [employer] [facility]. provides no warranty or guarantee of the accuracy or completeness of information in this document.
--- NOTE | 2023-04-30 13:26 | STRESSREP ---
Stress Test Report Exercise myocardial perfusion stress test. 52-year-old man with a history of coronary artery disease chest pain history of previous cardiac arrest and coronary bypass surgery Stress protocol: Resting EKG demonstrates normal sinus rhythm with a rate of 66 bpm resting blood pressure is 138/80 mmHg. The patient exercised according to the regular [place] protocol for a total duration of 8 minutes and 43 seconds attaining a maximum heart rate of 157 bpm which was 92% of maximum predicted heart rate; the maximum workload was 10.1 metabolic equivalents. At rest there were no ST or T wave changes noted to suggest ischemia and at peak exercise upsloping ST changes only were noted which did not meet the criteria for ischemia. No clinical angina was noted the test was terminated due to the target heart rate being achieved/fatigue. The peak blood pressure was 174/70 mmHg. Rate-pressure product was 27,000. Myocardial perfusion protocol. 14.2 mCi of technetium 99m sestamibi was injected at rest. The patient exercised according to regular [place] protocol for total duration of 8 minutes 43 seconds and at peak exercise 44.6 mCi of technetium 99m sestamibi was injected stress images were obtained stress and rest images were reconstructed in comparing the short axis vertical long and horizontal long axis. Gated images were also obtained. Perfusion SPECT analysis: Review of the stress images demonstrate normal uptake of tracer noted in all areas of the myocardium. The resting images similarly demonstrate normal uptake of tracer noted in all areas of the myocardium. No areas of reversibility are noted to suggest ischemia no previous infarct was noted. Gated SPECT analysis: The gated ejection fraction is 61%. Conclusion: Normal exercise myocardial perfusion stress test at a high workload Preserved ejection fraction.
== END | disposition home or self-care (01) ==
PROVIDERS: PCP Family Medicine; Referring Provider Nurse Practitioner Family; Visit Provider Nurse Practitioner Family
DX: Z95.1 Presence of aortocoronary bypass graft (principal); Z95.5 Presence of coronary angioplasty implant and graft; I10 Essential (primary) hypertension; E78.2 Mixed hyperlipidemia
CPT/HCPCS: 78452; 93017; A9500; A4216

== ENCOUNTER → 2023-11-13 | Outpatient (CLI) | payer OTHER, SELFPAY ==
[2023-11-13 13:34] LABS: ALB/GLOB Ratio 1.2 RATIO (0.9-2.4); AST(SGOT) 24 U/L (15-37); Alanine Aminotransfer ALT/SGPT 27 U/L (16-61); Albumin, Serum 3.6 g/dL (3.2-5.0); Alkaline Phosphatase 66 U/L (45-117); Anion Gap 6 (5-15); BUN 16 mg/dL (7-18); Calcium,Total 8.6 mg/dL (8.5-10.1); Chloride 107 mmol/L (98-107); Cholesterol 126 mg/dL (200); Creatinine, Serum 0.94 mg/dL (0.70-1.30); EST Glomerular Filtration Rate 90 mL/min (>60); Est Glom Filt Rate - Afr Amer 108 mL/min (>60); Globulin 3.1 g/dL (2.2-4.2); Glucose 110 mg/dL (74-106); High Density Lipoprotein 41 mg/dL; PSA,Total - Annual Screen 1.61 ng/mL (0.00-4.00); Potassium 4.1 mmol/L (3.5-5.1); Protein, Total 6.7 g/dL (6.4-8.2); Sodium Level 139 mmol/L (136-145); Triglycerides 92 mg/dL; Very Low Density Lipoprotein 18 mg/dL (5-40)
== END | disposition home or self-care (01) ==
PROVIDERS: PCP Family Medicine; Referring Provider Family Medicine; Visit Provider Family Medicine
DX: R73.01 Impaired fasting glucose (principal); Z12.5 Encounter for screening for malignant neoplasm of prostate
CPT/HCPCS: 36415; 80053; 80061; 84153; 84443; G0103

== ENCOUNTER 2024-02-03 09:42 | Emergency (ER) | payer OTHER, SELFPAY ==
[2024-02-03 09:43] VITALS: BP 181/91; PULSE 66; RESP 18; TEMP 36.6; O2SAT 97; BMI 37.0
--- NOTE | 2024-02-03 09:53 | EKG12_ITS ---
Test Reason : CP Blood Pressure : / mmHG Vent. Rate : 063 BPM Atrial Rate : 063 BPM P-R Int : 160 ms QRS Dur : 080 ms QT Int : 402 ms P-R-T Axes : 053 016 031 degrees QTc Int : 411 ms Normal sinus rhythm Normal ECG Confirmed by FRANSISCA PEÑALOZA, GRANT ([id number]), newspaper managing editor MIR MCELROY ([id number]) on 02/05/2024 9:53:56 AM Referred By: LUCAS/MANUELA Confirmed By:GRANT GONGORA MD
--- NOTE | 2024-02-03 09:55 | RAD_ITS ---
STUDY: X-RAY CHEST REASON FOR EXAM: Male, 53 years old. Chest pain TECHNIQUE: Single AP portable view of the chest. COMPARISON: 04/22/2023 FINDINGS: The lungs are clear and expanded. There is no demonstrated pleural abnormality. Sternal cerclage wires and vascular clips are present from a prior sternotomy and coronary artery bypass graft procedure (CABG). Normal mediastinum and tico. Normal visualized pulmonary arteries. Normal visualized aortic arch and descending thoracic aorta. Normal visualized thoracic spine. Normal visualized ribs, clavicles, and shoulders. There is no demonstrated abnormality of the visualized soft tissue structures of the upper abdomen. RAD/Chest 1 View (Portable) IMPRESSION: No acute pulmonary process Electronically Signed: Solomon Marks MD at 10:28 EDT ,
[2024-02-03 10:05] LABS: Absolute Lymphocyte Count 1.89 X10^3/uL (0.83-4.51); Basophil# 0.04 X10^3/uL; Basophil% 0.5 % (0-1); Eosinophils% 2.6 % (0-5); Hematocrit 43.6 % (40-54); Hemoglobin 14.6 g/dL (13.0-16.5); Lymphocyte # 1.89 X10^3/ul (0.83-4.51); Lymphocyte % 24.7 % (19-41); Mean Corp Hgb Conc 33.5 g/dL (32-36); Mean Corpuscular Hgb 29.7 pg (27.0-32.0); Mean Corpuscular Volume 88.8 fL (80-94); Mean Platelet Vol. 9.6 fl (6.2-12.0); Monocyte# 0.51 X10^3/uL; Monocyte% 6.7 % (0-10); NRBC Flagged by Analyzer 0 % (0-5); Neutrophil # 4.99 X10^3/uL (2.7-7.7); Neutrophil % 65.2 % (47-70); Platelet Count 290 K/mm3 (150-450); RBC Distribution Width CV 12.6 % (11.6-14.6); RBC Distribution Width SD 41.2 fl (35.1-43.9); Red Blood Count 4.91 M/mm3 (4.6-6.2); White Blood Count 7.7 K/mm3 (4.4-11.0)
--- NOTE | 2024-02-03 10:12 | ED.VIS.CHEST ---
HPI History of Present Illness Chief Complaint: Chest Pain Informant: patient Narrative Narrative: 53-year-old male history of coronary artery disease presenting to the emergency room with the chief complaint of chest pain. Patient states for the past couple months he has had intermittent episodes of a pressure-like sensation just inferior to the left axilla. He states that sometimes it comes and may stay for up to a week and then resolved. Nothing seems to make it better or worse. This particular episode started about a week ago but got worse over the weekend. He notes a slight cough no fever no significant sputum production. He wears CPAP at night. He has been able to vary the positions that he sleeps in without difficulty (no orthopnea or requirement to lay on 1 side). He denies any rashes. He denies any trauma. He denies any breast swelling or leakage from the nipple. He has had prior open heart surgery. No swelling. 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) Essential hypertension JUAN M (obstructive sleep apnea) Hyperlipemia, mixed Cardiac arrest (2003) Atherosclerosis of [place] coronary artery of [place] heart without angina pectoris Hypertension Home Medications ?Medication ?Instructions ?Recorded ?Last Taken ?Type aspirin 81 mg tablet,delayed 81 mg PO DAILY@0800 antiplatelet 04/13/13 12/23/17 History release 81 MG escitalopram oxalate 10 mg tablet 10 mg PO DAILY 12/31/19 Unknown History atorvastatin 80 mg tablet 80 mg PO QHS CHOLESTEROL #90 tabs 03/18/23 Unknown Rx metoprolol tartrate 25 mg tablet 25 mg PO BID #180 tabs 03/18/23 Unknown Rx lisinopril 20 mg tablet 20 mg PO BID #180 tabs 08/15/23 Unknown Rx ezetimibe 10 mg tablet 10 mg PO QDAY 11/07/23 Unknown History Allergy/AdvReac Type Severity Reaction Status Date / Time Penicillins (PCN) Allergy Rash Verified 02/03/24 09:43 Family History Mother Diabetes Hypertension HLD (hyperlipidemia) Grandmother CAD (coronary artery disease) Grandfather CAD (coronary artery disease) Surgical History History of coronary artery stent placement (04/01/17) H/O coronary artery bypass surgery (07/16/17) Postsurgical percutaneous transluminal coronary angioplasty (PTCA) status (04/01/17) History of left heart catheterization Social History Smoking Status: Former smoker how long ago did patient quit smokin + years ago alcohol intake: current alcohol intake frequency: holidays/special occasions only Alcohol type: beer, wine and hard liquor substance use type: does not use caffeine: Yes Type: coffee Number of servings: 3 what type of physical activity do you participate in: none seatbelt use: sometimes do you feel safe at home: Yes ROS ROS ED Constitutional Constitutional ED: Denies chills, fever(s) or weight loss Eyes Eyes: Denies change in vision or diplopia ENT ENT ED: Denies ear pain, rhinorrhea or sore throat Cardiovascular Cardiovascular: Reports as per HPI and chest pain; Denies orthopnea, palpitations or racing heartbeat Respiratory/Chest Respiratory/Chest: Denies cough, dyspnea or orthopnea Gastrointestinal Gastrointestinal: Denies abdominal pain, diarrhea, nausea or vomiting Genitourinary Genitourinary ED: Denies dysuria, hematuria or urinary frequency Musculoskeletal Musculoskeletal: Denies arthralgias or myalgias Integumentary Denies abscess or rash Neurologic Neurologic: Denies headache(s) or weakness Psychiatric Psychiatric: Denies anxiety, depression, suicidal ideation or suicidal thoughts Endocrine Endocrinology: Denies polydipsia, polyphagia or polyuria Allergic/Immunologic Allergic/Immunologic ED: Denies mouth swelling, tongue swelling or urticaria EXAM Physical Exam Const Vital Signs: 02/03/24 09:43 02/03/24 09:53 02/03/24 10:43 Temperature 97.8 F Temperature Source Oral Pulse Rate 66 81 Respiratory Rate 18 18 Blood Pressure 181/91 H 171/90 H Blood Pressure Mean 121 117 Pulse Ox 97 97 Oxygen Delivery Method Room Air Room Air Room Air 02/03/24 11:00 Temperature Temperature Source Pulse Rate 68 Respiratory Rate 18 Blood Pressure 171/90 H Blood Pressure Mean 117 Pulse Ox 97 Oxygen Delivery Method Room Air Positive well nourished and well developed General Appearance ED: well developed HEENT Reports normocephalic, head/scalp atraumatic and moist mucous membranes Eyes PERRL and EOMs intact bilaterally Neck no lymphadenopathy, supple and no JVD Chest Wall Chest Narrative: Breast exam appears normal. I do not appreciate any lymphadenopathy. There is no winging of the scapula. Sensation is normal. No palpable masses. No rash. No bony deformity. Resp normal respiratory effort and clear to auscultation bilaterally Cardio regular rate, regular rhythm and no murmurs GI normal to inspection, nondistended, normoactive bowel sounds and non-tender Palpation: soft Back/Spine no CVA tenderness and normal ROM Extremity normal to inspection General Extremety ED: Negative for edema General Extremity: Negative for edema Neuro oriented x3 and CN's II-XII intact bilaterally Sensorium / Orientation: alert Motor Exam: strength 5/5 throughout Psych mental status grossly normal Mood & Affect: Negative for depressed or tearful Skin no rashes or lesions noted and no wounds MDM MDM MDM Narrative Medical decision making narrative: Differential diagnosis includes but not limited to pulmonary embolism acute coronary syndrome pneumonia pleural effusion malignancy pneumothorax lymphadenopathy pleurisy reflux My independent interpretation the chest x-ray is no acute process. White count 7.7 hemoglobin 14.6 platelet count of 290. D-dimer is within normal limits at 0.37. Troponin is 14 and this is with 1 week of constant but worsening pain. EKG is nonischemic. Glucose 168 normal electrolytes glucose 168. A CT of the chest with IV contrast was obtained to evaluate for mass. This was read by radiology reviewed by myself. No obvious masses or lymphadenopathy is noted. No pneumothorax or pleural effusion. At this point I think the patient can be discharged home. I am not seeing an emergent condition for his pain or obvious cause at this time. Would recommend PCP follow-up History & Record Review Discussion w/independent historian: Patient Lab Data Attestation: I reviewed the patient's lab results. Labs: Laboratory Results - last 24 hr 02/03/24 02/03/24 09:53 09:53 WBC 7.7 RBC 4.91 Hgb 14.6 Hct 43.6 MCV 88.8 MCH 29.7 MCHC 33.5 RDW Std Deviation 41.2 RDW Coeff of Jenn 12.6 Plt Count 290 MPV 9.6 Immature Gran % (Auto) 0.300 Neut % (Auto) 65.2 Lymph % (Auto) 24.7 [place] % (Auto) 6.7 Eos % (Auto) 2.6 Baso % (Auto) 0.5 Absolute Neuts (auto) 5.0 Absolute Lymphs (auto) 1.89 Nucleated RBC % 0 D-Dimer Quant (PE/DVT) 0.37 Sodium 138 Potassium 4.0 Chloride 104 Carbon Dioxide 27.0 Anion Gap 6 BUN 16 Creatinine 1.08 Estim Creat Clear Calc 97.64 Est GFR (MDRD) Af Amer 93 Est GFR (MDRD) Non-Af 77 BUN/Creatinine Ratio 14.8 Glucose 168 H Calcium 9.1 Troponin I High Sens 14 Cancelled Radiography Diagnostic Testing: Clinical Impression(s) from Imaging Studies Chest X-Ray 02/03/24 09:55 IMPRESSION: No acute pulmonary process Electronically Signed: Solomon Marks MD at 10:28 EDT , Chest CT 02/03/24 11:00 IMPRESSION: No acute pulmonary process No suspicious adenopathy, specifically, no evidence of left axillary mass or adenopathy. Remote CABG Electronically Signed: Solomon Marks MD at 11:38 EDT , EKG Initial EKG: Attestation: I personally reviewed and interpreted this EKG as follows: Comments: Normal sinus rhythm ventricular rate of [address] segments. Discharge Plan Triage Chief Complaint: Chest Pain ED Provider: Seferino Gray Dx/Rx/DC Orders Clinical Impression: Chest pain, Atherosclerosis of [place] coronary artery of [place] heart without angina pectoris, Essential hypertension Instructions: ED Chest Pain, Uncertain Cause Prescriptions: No Action escitalopram oxalate 10 mg tablet 10 mg PO DAILY ezetimibe 10 mg tablet 10 mg PO QDAY aspirin 81 MG tablet 81 mg PO DAILY@0800 Patient Comments: antiplatelet metoprolol tartrate 25 mg tablet 25 mg PO BID Qty: 180 3RF atorvastatin 80 mg tablet 80 mg PO QHS Qty: 90 3RF lisinopril 20 mg tablet 20 mg PO BID Qty: 180 3RF Primary Care Provider: Omar Carvajal Referrals: Omar Carvajal MD [Primary Care Provider] - 1 Week Print Language: Bol[place]ian Disposition Disposition: Home, Self Care
[2024-02-03 10:23] LABS: Anion Gap 6 (5-15); BUN 16 mg/dL (7-18); BUN/Creat Ratio 14.8 RATIO (10-20); Calcium,Total 9.1 mg/dL (8.5-10.1); Chloride 104 mmol/L (98-107); Creatinine, Serum 1.08 mg/dL (0.70-1.30); EST Glomerular Filtration Rate 77 mL/min (>60); Est Glom Filt Rate - Afr Amer 93 mL/min (>60); Estimated Creatinine Clearance 97.64 ml/min; Glucose 168 mg/dL (74-106); Sodium Level 138 mmol/L (136-145); Troponin-I HS (w/2H Reflex) 14 pg/mL (3.0-78.0)
[2024-02-03 10:43] VITALS: BP 171/90; PULSE 81; RESP 18; O2SAT 97
[2024-02-03 10:44] LABS: D-Dimer Quantitative (DVT/PE) 0.37 FEU/ug/m (0.27-0.49)
[2024-02-03 11:00] VITALS: BP 171/90; PULSE 68; RESP 18; O2SAT 97
--- NOTE | 2024-02-03 11:00 | CT_ITS ---
INDICATION: left chest/axillary pain EXAMINATION: CT CHEST WITH CONTRAST - CT Chest W/ Contrast Injection TECHNIQUE: Helically acquired images were obtained of the chest following IV contrast. A radiation dose optimization technique was used for this scan. IV Contrast dosage and agent: COMPARISON: None. FINDINGS: LUNGS, PLEURA AND LARGE AIRWAYS: No masses, consolidation, or edema. No pleural effusion or thickening. No pneumothorax. THYROID: No thyroid lesions. HEART AND PERICARDIUM: There has been a remote CABG VESSELS: Thoracic aorta is not dilated. No aortic dissection. No obvious central pulmonary embolism although this study was not performed with the pulmonary embolism protocol. MEDIASTINUM AND ANAHI: No mediastinal or hilar adenopathy. Esophagus is unremarkable. No hiatal hernia. UPPER ABDOMEN: No acute pathology. BONES: No suspicious lytic or blastic abnormality. Bony structures show degenerative change CT/Chest WITH Contrast IMPRESSION: No acute pulmonary process No suspicious adenopathy, specifically, no evidence of left axillary mass or adenopathy. Remote CABG Electronically Signed: Solomon Marks MD at 11:38 EDT ,
[2024-02-03 11:57] LABS: Reflex Troponin-HS? (from REC) Y
[2024-02-03 12:00] VITALS: BP 164/91; PULSE 59; RESP 24; O2SAT 97
[2024-02-03 12:15] VITALS: BP 164/91; PULSE 61; RESP 18; TEMP 36.6; O2SAT 97
[2024-02-03 16:20] LABS: Troponin-I HS 11 pg/mL (3.0-78.0)
== END 2024-02-03 12:23 | disposition home or self-care (01) ==
PROVIDERS: Emergency Provider Emergency Medicine; PCP Family Medicine; Visit Provider Emergency Medicine
DX: R07.9 Chest pain, unspecified (principal); I10 Essential (primary) hypertension; I25.10 Atherosclerotic heart disease of native coronary artery without angina pectoris; E78.2 Mixed hyperlipidemia; Z87.891 Personal history of nicotine dependence; Z95.5 Presence of coronary angioplasty implant and graft; Z98.51 Tubal ligation status; Z82.49 Family history of ischemic heart disease and other diseases of the circulatory system; Z79.82 Long term (current) use of aspirin; I25.2 Old myocardial infarction; G47.33 Obstructive sleep apnea (adult) (pediatric)
CPT/HCPCS: 71045; 71260; 80048; 84484; 85025; 85379; 93005; 99283; Q9967; A4216

== ENCOUNTER → 2024-04-24 | Outpatient (CLI) | payer OTHER, SELFPAY ==
[2024-04-24 10:30] LABS: AST(SGOT) 20 U/L (15-37); Alanine Aminotransfer ALT/SGPT 29 U/L (16-61); Albumin, Serum 3.4 g/dL (3.2-5.0); Alkaline Phosphatase 67 U/L (45-117); Bilirubin, Direct 0.12 mg/dL (0.00-0.30); Cholesterol 122 mg/dL (200); Globulin 3.3 g/dL (2.2-4.2); High Density Lipoprotein 44 mg/dL; Protein, Total 6.7 g/dL (6.4-8.2); Triglycerides 85 mg/dL; Very Low Density Lipoprotein 17 mg/dL (5-40)
== END | disposition home or self-care (01) ==
PROVIDERS: PCP Family Medicine; Referring Provider Nurse Practitioner Family; Visit Provider Nurse Practitioner Family
DX: E78.2 Mixed hyperlipidemia (principal); Z95.1 Presence of aortocoronary bypass graft; Z95.5 Presence of coronary angioplasty implant and graft; I10 Essential (primary) hypertension
CPT/HCPCS: 36415; 80061; 80076